=== PATIENT | male | born 1945 | race Caucasian/White ===

== ENCOUNTER 2017-11-12 10:35 | Inpatient (IN) ==
--- NOTE | 2017-11-12 11:05 | Emergency Department Note ---
Skin/Abscess/FB HPI - General Chief complaint: Skin/Abscess/Foreign Body Stated complaint: Left foot wound, sent by wound care Time Seen by Provider: 11/12/17 10:57 Source: patient Mode of arrival: ambulatory Limitations: no limitations - History of Present Illness HPI Narrative: 72-year-old male presents from wound care for worsening left diabetic foot ulcer. He has no sensation in his feet. He states it does not hurt. He has had this ulcer for about 4 months. He states it was good 2 days ago and when he changed his dressing yesterday it was erythematous. Dr. bang he is worried about osteomyelitis. 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 He has been diabetic for a long time. He states his recent blood sugars have been between 115 and 190. He says he has had chills but no other symptoms. - Related Data Home Medications Medication Instructions Recorded Confirmed Cholecalciferol (Vitamin D3) 10,000 unit PO QDAY 03/06/16 11/12/17 [Vitamin D3] Fish Oil 1,000 mg PO DAILY 03/06/16 11/12/17 Insulin Aspart [Novolog] 27 unit SQ TID 03/06/16 11/12/17 Insulin Glargine, Human [Lantus] 60 unit SQ HS 03/06/16 11/12/17 Losartan [Cozaar] 100 mg PO DAILY 03/06/16 11/12/17 Magnesium Oxide [Magnesium] 400 mg PO QHS 03/06/16 11/12/17 Multivit,Th Iron,Other Min 1 each PO QDAY 03/06/16 11/12/17 [Complete Multivitamin] Rosuvastatin [Crestor] 5 mg PO 2-3XW 03/06/16 11/12/17 Terazosin [Hytrin] 4 mg PO HS 03/06/16 11/12/17 Torsemide 5 mg PO QDAY 03/06/16 11/12/17 amLODIPine [Norvasc] 10 mg HS 03/06/16 11/12/17 Allergies Allergy/AdvReac Type Severity Reaction Status Date / Time ceftriaxone [From Rocephin] Allergy Unknown Verified 11/12/17 10:36 gentamicin Allergy Rash Verified 11/12/17 10:36 levofloxacin [From Levaquin] Allergy Unknown Verified 11/12/17 10:36 Dybaejo-Byf-Dcd Reductase AdvReac Joint Pain Verified 11/12/17 10:36 Inhibitor Review of Systems All systems ED: reviewed and negative except as stated. Past Medical History - Past Medical History Medical history: Reports: DM, hyperlipidemia, hypertension, other Surgical history ED: Reports: orthopedic, other (R leg amputation BKA) Family history: Reports: non-contributory - Social History smoking status: Never smoker Physical Exam Limitations: no limitations General appearance: alert, in no apparent distress Head: atraumatic Eye: Present: normal appearance. Absent: conjunctival injection Neck: Present: normal inspection, full ROM Chest: Present: normal inspection, symmetric chest wall rise Respiratory: Present: normal lung sounds bilaterally Cardiovascular: Present: regular rate, normal heart sounds Abdominal: Present: soft, normal bowel sounds. Absent: tenderness Extremities: Present: other (Ulcer measuring 2 cm on the lateral aspect of the fifth metatarsal on the left foot. There is a 1 cm opening in the middle of this. There is surrounding erythema going up the foot as well as swelling. Warmth as well) Neurological: Present: alert, oriented X3 Psychiatric: Present: normal affect, normal mood Skin: Present: warm, dry Course Course Narrative: Patient agreed to stay in the hospital. Dr. Whaley accepted. Dr. bang I talked to the patient and explained what he needs to do. Patient was agreeable. Vital Signs Temperature 98.0 F 11/12/17 10:36 Pulse Rate 76 11/12/17 10:36 Respiratory Rate 16 11/12/17 10:36 Blood Pressure 152/65 11/12/17 10:36 Pulse Oximetry (%) 94 11/12/17 10:36 Temperature 98.0 F 11/12/17 10:36 Pulse Rate 76 11/12/17 10:36 Respiratory Rate 16 11/12/17 10:36 Blood Pressure 152/65 11/12/17 10:36 Pulse Oximetry (%) 94 11/12/17 10:36 Skin/Abscess/Foreign Body - Lab Data Lab results reviewed: Yes I reviewed the patient's lab results. Result diagrams: 11/12/17 11:00 11/12/17 11:00 Lab Results 11/12/17 11/12/17 Range/Units 11:00 11:00 WBC 10.1 (4.5-11.0) K/mcL RBC 3.90 L (4.50-5.90) M/mcL Hgb 10.9 L (13.5-16.5) g/dL Hct 33.3 L (41.0-55.0) % MCV 85.4 (80.0-100.0) fL MCH 28.1 (26.0-34.0) pg MCHC 32.9 (31.0-36.0) g/dL RDW 16.3 H (11.5-14.5) % Plt Count 210 (140-440) K/mcL MPV 9.4 (7.4-10.4) fL Gran % 70.1 (38.0-78.0) % Lymph % (Auto) 18.8 (15.5-49.0) % [place] % (Auto) 8.7 (1.0-12.0) % Eos % (Auto) 1.9 (0.0-7.0) % Baso % (Auto) 0.5 (0.0-2.0) % Gran # 7.1 (1.8-8.0) K/mcL Lymph # (Auto) 1.9 (1.5-4.8) K/mcL [place] # (Auto) 0.9 (0.1-0.9) K/mcL Eos # (Auto) 0.2 (0.0-0.7) K/mcL Baso # (Auto) 0.1 (0.0-0.3) K/mcL Sodium 139 (133-145) mmol/L Potassium 5.1 (3.3-5.1) mmol/L Chloride 98 (96-108) mmol/L Carbon Dioxide 25 (22-30) mmol/L Anion Gap 16.0 (8-16) BUN 47 H (8-23) mg/dl Creatinine 2.5 H (0.7-1.2) mg/dl GFR Calculation 25 Glucose 192 H (70-105) mg/dL Hemoglobin A1c 8.5 H (4.0-6.0) % HGB Estim Average Glucose 197 mg/dL Calcium 9.7 (8.6-10.4) mg/dl Magnesium 2.5 (1.6-2.5) mg/dL Total Bilirubin 0.2 (0.0-1.0) mg/dL AST 9 (0-37) U/l ALT 8 (0-40) U/l Alkaline Phosphatase 67 (39-117) U/L C-Reactive Protein 6.8 H (0.0-0.8) mg/dl Total Protein 7.4 (5.9-8.4) gm/dL Albumin 3.9 (3.2-5.2) gm/dL Globulin 3.5 (2.2-3.7) gm/dL Albumin/Globulin Ratio 1.1 (1.0-2.3) Prealbumin 23.0 (20-40) mg/dl TSH 2.91 (0.27-5.01) uIU/ml - Radiology Data Radiology results reviewed: Yes I reviewed the patient's radiology results. 1. 14 mm intramedullary signal abnormality in the fifth metatarsal head and neck suggesting focal osteomyelitis. Fluid in the adjacent MTP joint could indicate septic arthritis. There is also a 3 cm fluid collection in the adjacent soft tissues which may represent an abscess or seroma. 2. No abnormality seen in the dorsal soft tissues of the mid foot where, apparently, there is a puncture wound. No retained foreign body or abscess - only diffuse cellulitis. 3. Moderate arthritic changes in the first, second and third MTP joints - likely atypical degeneration. Please correlate with physical exam findings. 4. Moderate degenerative change - ankle mortise Disposition Pt seen by [facility]/PA only: Yes Clinical Impression: Osteomyelitis, Diabetic foot ulcer Disposition: Xfer As Inpt ([facility]) Condition: Fair Referrals: Gallo Blevins DO [Primary Care Provider] -
[2017-11-12 11:30] LABS: Basophils # (Auto) 0.1 K/mcL (0.0-0.3); Basophils % (Auto) 0.5 % (0.0-2.0); Eosinophils # (Auto) 0.2 K/mcL (0.0-0.7); Eosinophils % (Auto) 1.9 % (0.0-7.0); Granulocytes % (Auto) 70.1 % (38.0-78.0); Lymphocytes # (Auto) 1.9 K/mcL (1.5-4.8); Lymphocytes % (Auto) 18.8 % (15.5-49.0); Mean Cell Volume 85.4 fL (80.0-100.0); Mean Corpuscular HGB Conc 32.9 g/dL (31.0-36.0); Mean Corpuscular Hemoglobin 28.1 pg (26.0-34.0); Monocytes # (Auto) 0.9 K/mcL (0.1-0.9); Monocytes % (Auto) 8.7 % (1.0-12.0); Platelet Count 210 K/mcL (140-440); Red Cell Distribution Width 16.3 % (11.5-14.5)
--- NOTE | 2017-11-12 11:40 | XRay Report ---
CLINICAL INFORMATION: Shrapnel in the left lower leg - prescreening for MRI COMPARISON: None. FINDINGS: Malunified old oblique fractures the mid tibia and proximal fibular diaphysis are appreciated with mild associated deformity. There are multiple (greater than 30 (tiny metallic fragments within the intramedullary proximal tibia. None are seen within the soft tissues. Moderate patellofemoral, tibiofemoral and ankle mortise degeneration IMPRESSION: Multiple small (less than 3 mm) metallic fragments a the intramedullary proximal tibia diaphysis/metaphysis. There are no soft tissue foreign metallic bodies adjacent to the neural vascular bundle. Moderate patellofemoral, tibiofemoral and ankle degeneration Malunified old fractures mid tibia and proximal fibula diaphysis with mild resultant deformity Interpreted and Authenticated by: Adeel Reddy 11/12/17
[2017-11-12 12:01] LABS: ALT/SGPT 8 U/l (0-40); Albumin 3.9 gm/dL (3.2-5.2); Albumin/Globulin Ratio 1.1 (1.0-2.3); Alkaline Phosphatase 67 U/L (39-117); Blood Urea Nitrogen 47 mg/dl (8-23); C-Reactive Protein 6.8 mg/dl (0.0-0.8)
[2017-11-12 12:26] LABS: Estimated Average Glucose(eAG) 197 mg/dL; Hemoglobin A1C 8.5 % HGB (4.0-6.0)
[2017-11-12] MEDS ORDERED: VANCOMYCIN PER PHARMACY IV ONE (12:34)
--- NOTE | 2017-11-12 12:40 | Magnetic Resonance Report ---
CLINICAL INFORMATION: Puncture wound in the dorsal subcutaneous soft tissues - mid foot. Evaluate for osteomyelitis COMPARISON: None. TECHNIQUE: Axial T1-T2 proton density, coronal proton density and sagittal proton density and T1 weighted images were obtained in the ankle and foot. A skin marker was placed over the dorsal mid foot where, apparently, there is a puncture wound. FINDINGS: There is mild subcutaneous cellulitis throughout the dorsal forefoot and midfoot but no evidence of abscess, foreign body or underlying osteomyelitis. There is; however, a 14 mm focus of intramedullary signal abnormality in the fifth metatarsal head and neck. It is low signal on T1 and increased signal on T2 and suspicious for osteomyelitis. There is a small effusion in the adjacent fifth MTP joint and a 3 cm fluid collection in the adjacent soft tissues which could indicate an abscess. There are hammertoe deformities in all the digits. Moderate arthritic changes are noted in the first, second and third MTP featuring cartilage loss, subchondral erosion and edema. Central erosion of the first proximal phalanx articular surface noted due to arthritis. This is likely atypical degeneration rather than inflammatory. Moderate degenerative changes noted in the ankle mortise joint space atrium narrowing subchondral cyst formation and marginal osteophytes. Mild diffuse cellulitis is noted. Tendons and sheaths are unremarkable. IMPRESSION: 1. 14 mm intramedullary signal abnormality in the fifth metatarsal head and neck suggesting focal osteomyelitis. Fluid in the adjacent MTP joint could indicate septic arthritis. There is also a 3 cm fluid collection in the adjacent soft tissues which may represent an abscess or seroma. 2. No abnormality seen in the dorsal soft tissues of the mid foot where, apparently, there is a puncture wound. No retained foreign body or abscess - only diffuse cellulitis. 3. Moderate arthritic changes in the first, second and third MTP joints - likely atypical degeneration. Please correlate with physical exam findings. 4. Moderate degenerative change - ankle mortise Interpreted and Authenticated by: Adeel Reddy 11/12/17
[2017-11-12] MEDS ORDERED: PIPERACILLIN SODIUM/TAZOBACTAM 2.25 GM in DEXTROSE 5% IN WATER 50 ML IV ONE (12:52)
[2017-11-12] MEDS ORDERED: VANCOMYCIN 1,500 MG in 0.9 % SODIUM CHLORIDE 500 ML IV ONE (13:15)
--- NOTE | 2017-11-12 14:08 | Internal Med History&Physical ---
<Hunter Jeff - Last Filed: 11/12/17 15:07> Medical - H&P: HPI Patient information: Note initiated : 11/12/17 at 2:02 pm Service Date, if different from initiated Date: [] Patient: Conrad Paul 72 y/o M admitted on for Left foot wound, sent by wound care. Chief Complaint: [] Left lateral foot ulcer worsening History of present illness: Mr. 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 . He had been attending weekly wound care appointments with Dr. Harrington for four months which he states has been helping up until his presentation today. He states that his wound does not cause him pain due to his sensory neuropathy. He denies sick contacts, fever, chest pain, N/V/D, abdominal pain, melena, bleeding or bruising. He admits to chills, night sweats, cough and sputum production. A lower limb MRI in the ER demonstrated osteomyelitis of the left 5th metatarsal and phalange with no gas or fluid. He was started on 2.25g of IV Zosyn and 1.5g IV Vancomycin in the ER and will be admitted for medical management along with wound care consultation. Review of systems: Const: denies sick contacts, fever. Admits to chills HEENT: Denies blurry vision, changes in vision, sore throat Resp: denies SOB, hemoptysis. Admits to sough with sputum production Card: denies orthopnea, chest pain. Admits to LE edema GI: Denies N/V/D, heartburn, abdominal pain, melena, hematochezia. Admits to constipation : Denies urgency, frequency, dysuria. Endo: Denies polyuria. Admits to polydipsia. Skin: Denies rashes MSK: Denies myalgias. Admits to arthralgia, and muscle weakness. Heme: Denies bruising or bleeding Neuro: Denies falls or memory loss Medical - H&P: PMH Medical history: Insulin dependent DMII, hyperlipidemia, hypertension, sleep apnea, COPD Surgical history: Right [id number]-[id number] leg amputation secondary to DMII Family history: reviewed and not pertinent Social history: Never a smoker No marijuana or illicit drugs No alcohol Medical - H&P: Meds Home Medications Medication Instructions Recorded Confirmed Type Cholecalciferol (Vitamin D3) 10,000 unit PO QDAY 03/06/16 11/12/17 History [Vitamin D3] Fish Oil 1,000 mg PO DAILY 03/06/16 11/12/17 History Insulin Aspart [Novolog] 27 unit SQ TID 03/06/16 11/12/17 History Insulin Glargine, Human [Lantus] 60 unit SQ HS 03/06/16 11/12/17 History Losartan [Cozaar] 100 mg PO DAILY 03/06/16 11/12/17 History Magnesium Oxide [Magnesium] 400 mg PO QHS 03/06/16 11/12/17 History Multivit,Th Iron,Other Min 1 each PO QDAY 03/06/16 11/12/17 History [Complete Multivitamin] Rosuvastatin [Crestor] 5 mg PO 2-3XW 03/06/16 11/12/17 History Terazosin [Hytrin] 4 mg PO HS 03/06/16 11/12/17 History Torsemide 5 mg PO QDAY 03/06/16 11/12/17 History amLODIPine [Norvasc] 10 mg HS 03/06/16 11/12/17 History Allergies Allergy/AdvReac Type Severity Reaction Status Date / Time daptomycin Allergy Unknown Verified 11/12/17 16:18 ceftriaxone [From Rocephin] Allergy Unknown Verified 11/12/17 10:36 gentamicin Allergy Rash Verified 11/12/17 10:36 levofloxacin [From Levaquin] Allergy Unknown Verified 11/12/17 10:36 Bjpdpcx-Ucv-Iar Reductase AdvReac Joint Pain Verified 11/12/17 10:36 Inhibitor Medical - H&P: Exam - Constitutional Vitals: Temp Pulse Resp BP Pulse Ox 98.0 F 76 16 152/65 94 11/12/17 10:36 11/12/17 10:36 11/12/17 10:36 11/12/17 10:36 11/12/17 10:36 General appearance: obese - Eye Eye exam: Present: PERRL - Expanded ENT Exam Mouth exam: Present: moist - Respiratory Respiratory exam: Present: normal respiratory exam - Cardiovascular Cardiovascular exam: Present: RRR, +S1, +S2 - GI/Abdominal GI/Abdominal exam: Present: normal bowel sounds, distended, firm Additional comments: Obese abdomen. No pain, guarding or rebound. - Extremities Exam Additional comments: Right leg amputation below the knee. Left foot shows stage II progressing to III foot ulcer at the distal left 5th metatarsal head with no discharge. Erythema and swelling is progressing from the ulcer to the mid foot, sparing the heel and not to the level of the ankle joint. There is sensory neuropathy to fine and sharp touch to mid-calf level. +3 pre-tibial edema - Neurological Exam Neurological exam: Present: CN II-XII intact Additional comments: BL sensorineural hearing defects. 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 CRP still pending. Awaiting results of blood and tissue cultures. Began empiric treatment with IV Vancomycin + Zosyn, we will modify if necessary upon culture results returning. Daily sharp debridement of foot ulcer along with dressing changes and offloading will be necessary- will coordinate with wound care. Pre-renal azotemia BUN/Cr ratio of 27. Likely a chronic issue after reviewing his previous labs. Hesitant to administer fluids due to his lower extremity edema. We will continue to monitor and avoid nephrotoxic agents. Poorly controlled Insulin Dependent Type-II Diabetes Mellitus Hemoglobin A1c on 11/12/17 measured at 8.5%. Chemistry panel showed blood glucose on presentation to be 192. We will better manage blood glucose in the hospital and re-evaluate his insulin therapy. <JovanaDanilotrang R - Last Filed: 11/12/17 17:44> Medical - H&P: HPI Patient information: Note initiated : 11/12/17 at 5:29 pm Service Date, if different from initiated Date: [] Patient: Conrad Paul 72 y/o M admitted on 11/12/17 for Left foot wound, sent by wound care. Chief Complaint: [] History of present illness: Mr. Paul is a 72 year old M with h/o Dm, h/o right bka, presents to the ER today after being sent from the wound care clinic for evaluation of left lower extermity swelling erythema. The patient has a chr left lower leg ulcer managed in the wound care clinic, the patient seems to have his dressing changed every 2 days, his foot appeared ok on wednesday, this it was red and swollen, and there was worsening of the ulcer on the lateral aspect of the foot. No pain due to neuropathy. Seen in the wound care clinic and sent to the ER. the patient notes not feeling right for 1-2 weeks, chills and some night sweats , no fever. 10 point ros done neg excpet as mentioned above. In the ER noted to have unremarkable labs, ckd present unchanged.MRI foot shows abscess 3 cms/ vs seroma, ostemyelits. No podiatry present in the hospital, Dr Love would be consulting and performing the needed debridement and if needed amputation. deep tissue cultures sent Pt started on IV vancomycin and zosyn ID to be involved once cultures are back. patient admitted to the hospital for further management All systems: reviewed and no additional remarkable complaints except as stated ( as per HPI) Medical - H&P: PMH Medical history: reviewed Surgical history: reviewed Family history: reviewed and not pertinent Social history: reviewed Medical - H&P: Exam - Constitutional Vitals: Temp Pulse Resp BP Pulse Ox 97.9 F 76 20 145/80 92 11/12/17 15:34 11/12/17 15:23 11/12/17 15:34 11/12/17 15:34 11/12/17 15:34 Exam: GENERAL: The patient is a well-developed, well-nourished in no apparent distress. Is alert and oriented x3. VITAL SIGNS: Reviewed and as noted elsewhere. HEENT: Head is normocephalic and atraumatic. Extraocular muscles are intact. Pupils are equal, round, and reactive to light. Nares appeared normal. Mouth appears any without lesions. Mucous membranes are moist. NECK: Normal to inspection, Supple, No lymphadenopathy or thyromegaly. LUNGS: Air entry equal on both sides, no wheezing, crackles or rhonchi noted. No accessory muscles of respiration HEART: Regular rate and rhythm normal, S1 and S2 heard, no Gallop, S3 or Rub Noted, No Gross murmur heard. ABDOMEN: Soft, nontender, and nondistended. Positive bowel sounds. No hepatosplenomegaly was noted. EXTREMITIES: right bka, left leg ulcer on lateral edge erthma uptill ankle, marked. NEUROLOGIC: Cranial nerves II through XII are grossly intact. Motor and Sensory System Grossly Intact PSYCHIATRIC: Normal affect, Normal Mood. Appropriate Behavior. SKIN: No ulceration or wounds noted, No jaundice, No rash noted. Medical - H&P: Reslt - Labs CBC & Chem 7: 11/12/17 11:00 11/12/17 11:00 Labs: Short CBC 11/12/17 Range/Units 11:00 WBC 10.1 (4.5-11.0) K/mcL Hgb 10.9 L (13.5-16.5) g/dL Hct 33.3 L (41.0-55.0) % Plt Count 210 (140-440) K/mcL [facility] 11/12/17 11:00 Sodium 139 Potassium 5.1 Chloride 98 Carbon Dioxide 25 BUN 47 H Creatinine 2.5 H Glucose 192 H Calcium 9.7 Liver Function 11/12/17 Range/Units 11:00 Total Bilirubin 0.2 (0.0-1.0) mg/dL AST 9 (0-37) U/l ALT 8 (0-40) U/l Alkaline Phosphatase 67 (39-117) U/L Albumin 3.9 (3.2-5.2) gm/dL Medical - H&P: A/P - Narrative A/P Narrative: A/P Left 5th MT Osteomyelitis with Abscess Sepsis HTN HLD Chronic Kidney Disease Uncontrolled Diabetes Anemia Plan Admit to med surgery IV vanco and zosy Wound care consulted, ID to consult Deep tissue cultures sent Gentle hydration Resume home dose of lantus, ssi for glucose control. DVT hep sq Diet Carb consistent. Full code.
--- NOTE | 2017-11-12 14:23 | General Surgery Consult Note ---
History of Present Illness Patient information: Note initiated : 11/12/17 at 2:07 pm Service Date, if different from initiated Date: [] Patient: Conrad Paul 72 y/o M admitted on for Left foot wound, sent by wound care. 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 This is an INTERVAL CHANGE from his last encounter over 2 days ago. He is an established patient at wound center for treatment of his DFU Choi 2 under his LEFT 5 th toe MPJ. 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 He felt warm and had chills. Concerned about sepsis, he came to the wound center on an unscheduled appointment. He was evaluated in clinic and sent to ER for further investigations and management. Medications and Allergies Home Medications Medication Instructions Recorded Confirmed Type Cholecalciferol (Vitamin D3) 10,000 unit PO QDAY 03/06/16 11/12/17 History [Vitamin D3] Fish Oil 1,000 mg PO DAILY 03/06/16 11/12/17 History Insulin Aspart [Novolog] 27 unit SQ TID 03/06/16 11/12/17 History Insulin Glargine, Human [Lantus] 60 unit SQ HS 03/06/16 11/12/17 History Losartan [Cozaar] 100 mg PO DAILY 03/06/16 11/12/17 History Magnesium Oxide [Magnesium] 400 mg PO QHS 03/06/16 11/12/17 History Multivit,Th Iron,Other Min 1 each PO QDAY 03/06/16 11/12/17 History [Complete Multivitamin] Rosuvastatin [Crestor] 5 mg PO 2-3XW 03/06/16 11/12/17 History Terazosin [Hytrin] 4 mg PO HS 03/06/16 11/12/17 History Torsemide 5 mg PO QDAY 03/06/16 11/12/17 History amLODIPine [Norvasc] 10 mg HS 03/06/16 11/12/17 History Allergies Allergy/AdvReac Type Severity Reaction Status Date / Time ceftriaxone [From Rocephin] Allergy Unknown Verified 11/12/17 10:36 gentamicin Allergy Rash Verified 11/12/17 10:36 levofloxacin [From Levaquin] Allergy Unknown Verified 11/12/17 10:36 Pxlzmwn-Dal-Ghh Reductase AdvReac Joint Pain Verified 11/12/17 10:36 Inhibitor Exam Temp Pulse Resp BP Pulse Ox 98.0 F 76 16 152/65 94 11/12/17 10:36 11/12/17 10:36 11/12/17 10:36 11/12/17 10:36 11/12/17 10:36 - General physical appearance well developed, well nourished, no distress - Eyes PERRL, normal ocular movement - ENT normal pinna, normal nares, normal mucosa, no congestion - Head Head exam IM: Present: atraumatic, normal inspection, normocephalic - Neck no masses, no bruits, trachea midline, no lymphadectomy, no venous distension - Cardiovascular Cardiovascular exam IM: Present: normal rate and rhythm - Respiratory normal expansion, normal respiratory effort, clear to auscultation - Abdomen Abdomen: Present: soft, non tender, bowel sounds - Integumentary Present: other (CELLULITIS left foot from DFU site to anterior ankle region with blister over the dorsal surface of foot which ruptures and drained serous fluid. Soft macerated wound base with purulence noted with odor to the discharge. NO crepitation. ) - Neurologic Present: normal coordination, other (Diabetic neuropahty LEFT foot, ankle and lowewr leg. Right BKA amputation. ) - Musculoskeletal Present: other (Right BKA. Ambulates with a walker. ) - Psychiatric Present: oriented to time, oriented to person, oriented to place, speech is normal, memory intact Results - Labs 11/12/17 11:00 11/12/17 11:00 Abnormal lab results 11/12/17 11/12/17 Range/Units 11:00 11:00 RBC 3.90 L (4.50-5.90) M/mcL Hgb 10.9 L (13.5-16.5) g/dL Hct 33.3 L (41.0-55.0) % RDW 16.3 H (11.5-14.5) % BUN 47 H (8-23) mg/dl Creatinine 2.5 H (0.7-1.2) mg/dl Glucose 192 H (70-105) mg/dL Hemoglobin A1c 8.5 H (4.0-6.0) % HGB C-Reactive Protein 6.8 H (0.0-0.8) mg/dl Diabetes panel 11/12/17 Range/Units 11:00 Sodium 139 (133-145) mmol/L Potassium 5.1 (3.3-5.1) mmol/L Chloride 98 (96-108) mmol/L Carbon Dioxide 25 (22-30) mmol/L BUN 47 H (8-23) mg/dl Creatinine 2.5 H (0.7-1.2) mg/dl Glucose 192 H (70-105) mg/dL Hemoglobin A1c 8.5 H (4.0-6.0) % HGB Calcium 9.7 (8.6-10.4) mg/dl AST 9 (0-37) U/l ALT 8 (0-40) U/l Alkaline Phosphatase 67 (39-117) U/L Total Protein 7.4 (5.9-8.4) gm/dL Albumin 3.9 (3.2-5.2) gm/dL Thyroid panel 11/12/17 Range/Units 11:00 TSH 2.91 (0.27-5.01) uIU/ml Calcium panel 11/12/17 Range/Units 11:00 Calcium 9.7 (8.6-10.4) mg/dl Albumin 3.9 (3.2-5.2) gm/dL Pituitary panel 11/12/17 Range/Units 11:00 Sodium 139 (133-145) mmol/L Potassium 5.1 (3.3-5.1) mmol/L Chloride 98 (96-108) mmol/L Carbon Dioxide 25 (22-30) mmol/L BUN 47 H (8-23) mg/dl Creatinine 2.5 H (0.7-1.2) mg/dl Glucose 192 H (70-105) mg/dL Calcium 9.7 (8.6-10.4) mg/dl TSH 2.91 (0.27-5.01) uIU/ml Adrenal panel 11/12/17 Range/Units 11:00 Sodium 139 (133-145) mmol/L Potassium 5.1 (3.3-5.1) mmol/L Chloride 98 (96-108) mmol/L Carbon Dioxide 25 (22-30) mmol/L BUN 47 H (8-23) mg/dl Creatinine 2.5 H (0.7-1.2) mg/dl Glucose 192 H (70-105) mg/dL Calcium 9.7 (8.6-10.4) mg/dl Total Bilirubin 0.2 (0.0-1.0) mg/dL AST 9 (0-37) U/l ALT 8 (0-40) U/l Alkaline Phosphatase 67 (39-117) U/L Total Protein 7.4 (5.9-8.4) gm/dL Albumin 3.9 (3.2-5.2) gm/dL All other labs normal. Assessment and Plan (1) Sepsis Assessment; CSSSI, / Osteomyelitis DFU Choi 2 with uncontrolled diabetes. and open neuropathic ulcer under Left foot 5 the toe MPJ. Plan: Tissue cultures obtained from ulcer bed before starting on IV antibiotics. IV antibiotics Zosyn and Vancomycin. Local wound care MIST therapy BID Elevation of foot on pillows. MONITOR closely for DEFERVESCENCE of clinical findings. Possibility of need for OR debridement and / or HBOT as appropriate. Spoke with patient and Hospitalist physician and nursing staff at length. I will be following this patient during his hospitalization. Status: Acute Priority: High Comment: CSSSI, osteomyelitis in DFU, Choi 2 , Uncontrolled diabetes Qualifiers: Sepsis type: sepsis due to unspecified organism Qualified Code(s): A41.9 - Sepsis, unspecified organism
[2017-11-12] MEDS ORDERED: ALBUTEROL SULFATE 2.5 MG/3 ML NEBULIZER NEB PRN (15:28)
[2017-11-12] MEDS ORDERED: ACETAMINOPHEN 325 MG TABLET PO PRN (15:28)
[2017-11-12] MEDS ORDERED: HYDROmorphone 2 MG/ML VIAL IV PRN (15:28)
[2017-11-12] MEDS ORDERED: HYDROcodone/APAP 5/325MG TABLET PO PRN (15:28)
[2017-11-12] MEDS ORDERED: MAGNESIUM HYDROXIDE 30 ML ORAL.SUSP PO PRN (15:28)
[2017-11-12] MEDS ORDERED: DEXTROSE 31 GM ORAL.SUSP PO PRN (17:02)
[2017-11-12] MEDS ORDERED: DEXTROSE 50% 50 ML VIAL IV PRN (17:02)
[2017-11-12] MEDS ORDERED: INSULIN LISPRO 1 UNIT/0.01 ML UNIT SQ SCH (17:30)
[2017-11-12] MEDS: PIPERACILLIN SODIUM/TAZOBACTAM 2.25 GM in DEXTROSE 5% IN WATER 50 ML IV SCH ×2 (17:55→22:52)
[2017-11-12] MEDS ORDERED: GENTAMICIN SULFATE 40 MG, CLINDAMYCIN 300 MG, BACITRACIN 25,000 UNIT in SODIUM CHLORIDE... IRR ONE (22:00)
[2017-11-12] MEDS: amLODIPine 10 MG TABLET PO SCH (22:02)
[2017-11-12] MEDS: HEPARIN 5,000 UNIT/ML VIAL SQ SCH (22:02)
[2017-11-12] MEDS: INSULIN LISPRO 1 UNIT/0.01 ML UNIT SQ SCH (22:02)
[2017-11-12] MEDS: MAGNESIUM OXIDE 400 MG TABLET PO SCH (22:02)
[2017-11-12] MEDS: TERAZOSIN 1 MG CAPSULE PO SCH (22:02)
[2017-11-12] MEDS: INSULIN GLARGINE, HUMAN 1 UNIT/0.01 ML SQ SCH (22:03)
[2017-11-12] MEDS: 0.9 % SODIUM CHLORIDE 10 ML SYRINGE IV SCH (22:09)
[2017-11-13 05:35] LABS: Basophils # (Auto) 0 K/mcL (0.0-0.3); Basophils % (Auto) 0.5 % (0.0-2.0); Eosinophils # (Auto) 0.2 K/mcL (0.0-0.7); Eosinophils % (Auto) 2.5 % (0.0-7.0); Granulocytes % (Auto) 73.6 % (38.0-78.0); Lymphocytes % (Auto) 12.9 % (15.5-49.0); Mean Cell Volume 86.4 fL (80.0-100.0); Mean Corpuscular HGB Conc 33.5 g/dL (31.0-36.0); Mean Corpuscular Hemoglobin 28.9 pg (26.0-34.0); Monocytes # (Auto) 0.9 K/mcL (0.1-0.9); Monocytes % (Auto) 10.5 % (1.0-12.0); Platelet Count 187 K/mcL (140-440); Red Cell Distribution Width 16.4 % (11.5-14.5)
[2017-11-13] MEDS: PIPERACILLIN SODIUM/TAZOBACTAM 2.25 GM in DEXTROSE 5% IN WATER 50 ML IV SCH ×3 (05:35→17:10)
[2017-11-13] MEDS: 0.9 % SODIUM CHLORIDE 10 ML SYRINGE IV SCH ×3 (05:57→20:29)
[2017-11-13 06:05] LABS: Hemoglobin A1C 8.5 % HGB (4.0-6.0)
[2017-11-13 06:11] LABS: ALT/SGPT 7 U/l (0-40); Albumin 3.6 gm/dL (3.2-5.2); Albumin/Globulin Ratio 1.1 (1.0-2.3); Alkaline Phosphatase 65 U/L (39-117); Bilirubin,Direct < 0.2 mg/dL (0.0-0.3); Blood Urea Nitrogen 45 mg/dl (8-23); Gamma Glutamyl Transpeptidase 24 U/L (8-61); Uric Acid 10.4 mg/dL (2.5-8.0)
[2017-11-13 06:12] LABS: C-Reactive Protein 7.5 mg/dl (0.0-0.8)
[2017-11-13] MEDS: INSULIN LISPRO 1 UNIT/0.01 ML UNIT SQ SCH ×4 (07:28→20:27)
[2017-11-13] MEDS: FISH OIL 1,000 MG CAPSULE PO SCH (09:05)
[2017-11-13] MEDS: VITAMIN D3 5,000 UNIT CAPSULE PO SCH (09:05)
[2017-11-13] MEDS: HEPARIN 5,000 UNIT/ML VIAL SQ SCH ×2 (09:05→20:28)
[2017-11-13] MEDS: MULTIVIT,THER IRON,CA,FA & MIN 1 TABLET PO SCH (09:05)
[2017-11-13] MEDS: GENTAMICIN SULFATE 40 MG, CLINDAMYCIN 300 MG, BACITRACIN 25,000 UNIT in SODIUM CHLORIDE... IRR SCH ×2 (09:06→20:28)
[2017-11-13] MEDS: LOSARTAN 50 MG TABLET PO SCH (09:06)
[2017-11-13] MEDS: TORSEMIDE 10 MG TABLET PO SCH (09:06)
--- NOTE | 2017-11-13 11:50 | General Surgery Progress Note ---
Subjective Narrative: Note initiated : 11/13/17 at 11:46 am Service Date, if different from initiated Date: [] Patient: Conrad Paul 72 y/o M admitted on 11/12/17 for Left foot wound, sent by wound care. Chief Complaint: [] patient had an uneventful night. On Local wound care and IV antibiotics. Objective Temp Pulse Resp BP Pulse Ox 98.2 F 68 16 168/75 93 11/13/17 11:35 11/13/17 11:35 11/13/17 11:35 11/13/17 11:35 11/13/17 11:35 AVSS. No changes in MARCO. Patient has had h/o COPD in past. Reviewed MRI report and seen pictures. Patient has soft tissue infection and POSSIBLY bone infection at site of DFU. Needing wound exploration and debridement. This was carried out at bedside with nursing assistance from Claudette GUTIERREZ - Additional Data Intake & Output - Last 24 hours: Intake & Output 11/11/17 11/12/17 11/13/17 11/14/17 05:59 05:59 05:59 05:59 Intake Total 1150 / 1150 350 / 350 Output Total 1300 / 1300 Balance -150 / -150 350 / 350 Weight 307 lb - Labs 11/13/17 04:15 11/13/17 04:15 Diabetes panel 11/12/17 11/13/17 11/13/17 Range/Units 11:00 04:15 04:15 Sodium 139 138 (133-145) mmol/L Potassium 5.1 4.9 (3.3-5.1) mmol/L Chloride 98 100 (96-108) mmol/L Carbon Dioxide 25 25 (22-30) mmol/L BUN 47 H 45 H (8-23) mg/dl Creatinine 2.5 H 2.4 H (0.7-1.2) mg/dl Glucose 192 H 116 H (70-105) mg/dL Hemoglobin A1c 8.5 H 8.5 H (4.0-6.0) % HGB Calcium 9.7 9.3 (8.6-10.4) mg/dl AST 9 10 (0-37) U/l ALT 8 7 (0-40) U/l Alkaline Phosphatase 67 65 (39-117) U/L Total Protein 7.4 6.9 (5.9-8.4) gm/dL Albumin 3.9 3.6 (3.2-5.2) gm/dL Triglycerides 181 H (<150) mg/dl Thyroid panel 11/12/17 Range/Units 11:00 TSH 2.91 (0.27-5.01) uIU/ml Calcium panel 11/12/17 11/13/17 Range/Units 11:00 04:15 Calcium 9.7 9.3 (8.6-10.4) mg/dl Phosphorus 3.7 (2.7-4.5) mg/dL Albumin 3.9 3.6 (3.2-5.2) gm/dL Pituitary panel 11/12/17 11/13/17 Range/Units 11:00 04:15 Sodium 139 138 (133-145) mmol/L Potassium 5.1 4.9 (3.3-5.1) mmol/L Chloride 98 100 (96-108) mmol/L Carbon Dioxide 25 25 (22-30) mmol/L BUN 47 H 45 H (8-23) mg/dl Creatinine 2.5 H 2.4 H (0.7-1.2) mg/dl Glucose 192 H 116 H (70-105) mg/dL Calcium 9.7 9.3 (8.6-10.4) mg/dl TSH 2.91 (0.27-5.01) uIU/ml Adrenal panel 11/12/17 11/13/17 Range/Units 11:00 04:15 Sodium 139 138 (133-145) mmol/L Potassium 5.1 4.9 (3.3-5.1) mmol/L Chloride 98 100 (96-108) mmol/L Carbon Dioxide 25 25 (22-30) mmol/L BUN 47 H 45 H (8-23) mg/dl Creatinine 2.5 H 2.4 H (0.7-1.2) mg/dl Glucose 192 H 116 H (70-105) mg/dL Calcium 9.7 9.3 (8.6-10.4) mg/dl Total Bilirubin 0.2 0.2 (0.0-1.0) mg/dL AST 9 10 (0-37) U/l ALT 8 7 (0-40) U/l Alkaline Phosphatase 67 65 (39-117) U/L Total Protein 7.4 6.9 (5.9-8.4) gm/dL Albumin 3.9 3.6 (3.2-5.2) gm/dL Assessment and Plan (1) Sepsis Problem details: CSSSI, osteomyelitis in DFU, Choi 2, Uncontrolled diabetes Status: Acute Current Visit: Yes - Time Spent With Patient Total time spent is greater than 50% in coordination of care (as documented) at patient's floor/unit and/or counseling patient: Assessment : DFU Choi 3 ( s/p wound exploration and debridement at bedside. ) Plan: Continue current treatment. CXR before HBOT for DFU 3 with Sepsis. 15 - 24 minutes (Satisfactory progress.)
--- NOTE | 2017-11-13 12:03 | General Surgery Procedure Note ---
Date of procedure: Note initiated : 11/13/17 at 11:54 am Service Date, if different from initiated Date: [] Pre-op diagnosis: Sepsis Infect DFU Left foot Anterior lateral Post-op diagnosis: other (DFU Choi 3. Post debridement of ulcer site.) Procedure: Spoke with patient about results of MRI and need to evaluate and dbride the wound at bedside. Informed verbal consent obtained. With nursing help, the area was cleaned, prepped and draped. Patient has neuropathy and no sensation around the wound and foot site. Using # 15 scalpel blade, tangential excision of ellipse of skin and callosity was carried out up normal palpable skin margins. Thick yellow purulent drainage was seen at 6 O'Clock. This area was explored digitally and loculations were broken down digitally. The wound was copiously washed and irrigated with NS and packed open with GCB soaked wet and dry gauze and reinforced with gauze, ABD and kerlix bandage. EBL under 5 ML. Anesthesia: none Surgeon: Valdo Harrington Pathology: none sent Condition: stable Disposition: floor (Procedure well tolerated.)
--- NOTE | 2017-11-13 15:01 | Internal Med Progress Note ---
Medical - PN: Subj Patient information: Note initiated : 11/13/17 at 2:55 pm Service Date, if different from initiated Date: [] Patient: Conrad Paul 72 y/o M admitted on 11/12/17 for Left foot wound, sent by wound care. Chief Complaint: [] Interval history: Mr. 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 . He had been attending weekly wound care appointments with Dr. Harrington for four months which he states has been helping up until his presentation today. He states that his wound does not cause him pain due to his sensory neuropathy. He denies sick contacts, fever, chest pain, N/V/D, abdominal pain, melena, bleeding or bruising. He admits to chills, night sweats, cough and sputum production. A lower limb MRI in the ER demonstrated osteomyelitis of the left 5th metatarsal and phalange with no gas or fluid. He was started on 2.25g of IV Zosyn and 1.5g IV Vancomycin in the ER and will be admitted for medical management along with wound care consultation 10/14 Pt seen examined, no acute overnight issues, tolerating po dietwell, wound recently wrapped by Dr Maya Pt labs st able cultures neg so far Plan for picc Pertinent ROS: Denies headache, dizziness Denies chest pain, palpitations Denies cough or shortness of breath Denies abdominal pain, nausea or vomiting. - Constitutional Vitals: Vital Signs Temp Pulse Resp BP Pulse Ox 98.2 F 68 16 168/75 93 11/13/17 11:35 11/13/17 11:35 11/13/17 11:35 11/13/17 11:35 11/13/17 11:35 Period Temp Pulse Resp BP Sys/Zapata Pulse Ox Last 24 Hr 97.8 F-98.7 F 60-76 16-20 142-168/50-80 91-94 Intake and Output 11/13/17 11/13/17 11/13/17 05:59 13:59 21:59 Intake Total 450 / 450 1050 / 1050 Output Total 1300 / 1300 Balance -850 / -850 1050 / 1050 Weight 307 lb Patient Weight 11/14/17 05:59 Weight 307 lb Intake & Output: Intake & Output 11/13/17 11/13/17 11/13/17 05:59 13:59 21:59 Intake Total 450 / 450 1050 / 1050 Output Total 1300 / 1300 Balance -850 / -850 1050 / 1050 Weight 307 lb Intake: IV 50 / 50 50 / 50 Zosyn 2.25 gm In Dextrose 5% in 50 / 50 50 / 50 Water 50 ml @ 100 mls/hr IV Q6H [facility] Rx#:[id number] Oral 400 / 400 1000 / 1000 Output: Void Amount 1300 / 1300 Other: Meal Lunch Percent of Meal Consumed 100% Feeding Ability Independent Exam: Constitutional; Afebrile, cooperative, alert, not in distress. Eyes- No icterus, , No periorbital swelling Ears- Ext ear normal, hearing normal to conversation. Neck- Midline trachea, supple Respiratory system: Air Entry equal on both sides, No crackles or wheezing, no rhonchi. CVS- Rate rhythm regular, S1,S2 heard, no gallop, no rub. Abdomen- Soft nontender abdomen, no organomegaly, no tenderness, no guarding or rigidity, [employer]- AOOx3, moving all extremities, no gross focal deficit noted. Medical - PN: Obj Da - Labs CBC & Chem 7: 11/13/17 04:15 11/13/17 04:15 Labs: Abnormal Lab Results 11/13/17 11/13/17 11/13/17 04:15 04:15 04:15 RBC Hgb Hct RDW Lymph % (Auto) Lymph # (Auto) ESR 107 H BUN 45 H Creatinine 2.4 H Glucose 116 H Hemoglobin A1c 8.5 H Uric Acid 10.4 H Magnesium 2.6 H C-Reactive Protein 7.5 H Triglycerides 181 H 11/13/17 11/12/17 11/12/17 04:15 11:00 11:00 RBC 3.60 L 3.90 L Hgb 10.4 L 10.9 L Hct 31.1 L 33.3 L RDW 16.4 H 16.3 H Lymph % (Auto) 12.9 L Lymph # (Auto) 1.0 L ESR BUN 47 H Creatinine 2.5 H Glucose 192 H Hemoglobin A1c 8.5 H Uric Acid Magnesium C-Reactive Protein 6.8 H Triglycerides Meds: Medications Acetaminophen (Tylenol) 650 mg PO Q6HP PRN PRN Reason: PAIN/FEVER > 101 Hydrocodone Bitart/Acetaminophen (Malone 5/325mg) 1 tab PO Q4HP PRN PRN Reason: PAIN LEVEL 3-6 Albuterol Sulfate (Ventolin) 2.5 mg NEB Q2HP PRN PRN Reason: Shortness Of Breath Amlodipine Besylate (Norvasc) 10 mg PO HS [facility] Last Admin: 11/12/17 22:02 Dose: 10 mg Atorvastatin Calcium (Lipitor) 20 mg PO MoTh@2100 [facility] Dextrose (Dextrose 50%) 0 ml IV UD PRN PRN Reason: Hypoglycemia Diagnostic Test (Pha) (Accu-Chek) 1 each FS ACHS [facility] Last Admin: 11/13/17 11:10 Dose: 1 each Fish Oil (Fish Oil) 1,000 mg PO DAILY [facility] Last Admin: 11/13/17 09:05 Dose: 1,000 mg Glucose (Insta-Glucose) 15 gm PO PRN PRN PRN Reason: Hypoglycemia Heparin Sodium (Porcine) (Heparin) 5,000 unit SQ Q12 [facility] Last Admin: 11/13/17 09:05 Dose: 5,000 unit Heparin Sodium (Porcine) (Heparin Flush) 2 ml IV Q12 [facility] Hydromorphone HCl (Dilaudid) 0.5 mg IV Q2HP PRN PRN Reason: PAIN LEVEL > 6 Piperacillin Sod/Tazobactam (Sod 2.25 gm/ Dextrose) 50 mls @ 100 mls/hr IV Q6H [facility] Last Admin: 11/13/17 11:26 Dose: 100 mls/hr Gentamicin Sulfate 40 mg/Clindamycin Phosphate 300 mg/Bacitracin 25,000 unit/ Sodium Chloride 503 mls @ 0 mls/hr IRR BID [facility] Last Admin: 11/13/17 09:06 Dose: 10 mls/hr Insulin Glargine (Lantus) 60 unit SQ [facility] Last Admin: 11/12/17 22:03 Dose: 60 unit Insulin Human Lispro (Humalog) 0 unit SQ ACHS [facility]; Protocol Last Admin: 11/13/17 11:10 Dose: 12 unit Iron Carb/Multivit/Hyden/Folic Acid (Multivitamin W/Minerals) 1 tab PO DAILY [facility] Last Admin: 11/13/17 09:05 Dose: 1 tab Losartan Potassium (Cozaar) 100 mg PO DAILY [facility] Last Admin: 11/13/17 09:06 Dose: 100 mg Magnesium Hydroxide (Milk Of Magnesia) 30 ml PO DAILYP PRN PRN Reason: Constipation Magnesium Oxide (Magnesium Oxide) 400 mg PO QHS [facility] Last Admin: 11/12/17 22:02 Dose: 400 mg Sodium Chloride (Saline Flush) 10 ml IV Q8 [facility] Last Admin: 11/13/17 05:57 Dose: 10 ml Terazosin HCl (Hytrin) 4 mg PO HS [facility] Last Admin: 11/12/17 22:02 Dose: 4 mg Torsemide (Demadex) 5 mg PO DAILY [facility] Last Admin: 11/13/17 09:06 Dose: 5 mg Vitamin D (Vitamin D3) 10,000 unit PO DAILY [facility] Last Admin: 11/13/17 09:05 Dose: 10,000 unit Medical - PN: A/P - Time Spent With Patient Total time spent is greater than 50% in coordination of care (as documented) at patient's floor/unit and/or counseling patient: - Narrative A/P Narrative: A/P Left 5th MT Osteomyelitis with Abscess Sepsis HTN HLD Chronic Kidney Disease Uncontrolled Diabetes Anemia Plan continue IV vanco and zosyn get picc line Wound care consulted, ID consult Deep tissue cultures sent, results pending. Gentle hydration Resume home dose of lantus, ssi for glucose control. home meds resumed. DVT hep sq Diet Carb consistent. Full code. Medical - PN: Qual - VTE Deep Vein Thrombosis/Pulmonary Embolism Present on Admission: No
[2017-11-13] MEDS: amLODIPine 10 MG TABLET PO SCH (20:26)
[2017-11-13] MEDS: INSULIN GLARGINE, HUMAN 1 UNIT/0.01 ML SQ SCH (20:27)
[2017-11-13] MEDS: MAGNESIUM OXIDE 400 MG TABLET PO SCH (20:29)
[2017-11-13] MEDS: TERAZOSIN 1 MG CAPSULE PO SCH (20:46)
[2017-11-14] MEDS: PIPERACILLIN SODIUM/TAZOBACTAM 2.25 GM in DEXTROSE 5% IN WATER 50 ML IV SCH ×3 (00:02→12:30)
[2017-11-14] MEDS: 0.9 % SODIUM CHLORIDE 10 ML SYRINGE IV SCH ×3 (05:04→22:56)
[2017-11-14 07:16] LABS: Basophils # (Auto) 0 K/mcL (0.0-0.3); Basophils % (Auto) 0.6 % (0.0-2.0); Eosinophils # (Auto) 0.2 K/mcL (0.0-0.7); Eosinophils % (Auto) 2.8 % (0.0-7.0); Granulocytes % (Auto) 62.1 % (38.0-78.0); Lymphocytes # (Auto) 1.5 K/mcL (1.5-4.8); Lymphocytes % (Auto) 21.3 % (15.5-49.0); Mean Cell Volume 86.1 fL (80.0-100.0); Mean Corpuscular HGB Conc 32.9 g/dL (31.0-36.0); Mean Corpuscular Hemoglobin 28.4 pg (26.0-34.0); Monocytes % (Auto) 13.2 % (1.0-12.0); Platelet Count 188 K/mcL (140-440); RBC 3.49 M/mcL (4.50-5.90); Red Cell Distribution Width 15.8 % (11.5-14.5)
[2017-11-14] MEDS: MULTIVIT,THER IRON,CA,FA & MIN 1 TABLET PO SCH (07:55)
[2017-11-14] MEDS: LOSARTAN 50 MG TABLET PO SCH (07:55)
[2017-11-14] MEDS: INSULIN LISPRO 1 UNIT/0.01 ML UNIT SQ SCH ×4 (07:55→21:53)
[2017-11-14] MEDS: TORSEMIDE 10 MG TABLET PO SCH (07:55)
[2017-11-14] MEDS: FISH OIL 1,000 MG CAPSULE PO SCH (07:56)
[2017-11-14] MEDS: HEPARIN 5,000 UNIT/ML VIAL SQ SCH ×2 (07:56→21:54)
[2017-11-14] MEDS: VITAMIN D3 5,000 UNIT CAPSULE PO SCH (07:56)
[2017-11-14 08:04] LABS: ALT/SGPT 7 U/l (0-40); Albumin 3.4 gm/dL (3.2-5.2); Alkaline Phosphatase 60 U/L (39-117); Bilirubin,Direct < 0.2 mg/dL (0.0-0.3); Blood Urea Nitrogen 50 mg/dl (8-23); Gamma Glutamyl Transpeptidase 25 U/L (8-61); Uric Acid 9.9 mg/dL (2.5-8.0)
[2017-11-14] MEDS: GENTAMICIN SULFATE 40 MG, CLINDAMYCIN 300 MG, BACITRACIN 25,000 UNIT in SODIUM CHLORIDE... IRR SCH ×2 (12:30→21:54)
--- NOTE | 2017-11-14 12:39 | General Surgery Progress Note ---
Subjective Patient reports: other (Uneventful night. Patient does NOT voice any complaints. ) Narrative: Note initiated : 11/14/17 at 12:36 pm Service Date, if different from initiated Date: [] Patient: Conrad Paul 72 y/o M admitted on 11/12/17 for Left 5th MT Osteomyelitis with Abscess. Chief Complaint: [] Objective Temp Pulse Resp BP Pulse Ox 98.0 F 62 16 148/70 92 11/14/17 07:15 11/14/17 07:15 11/14/17 07:15 11/14/17 07:15 11/14/17 07:15 AVSS. No changes MARCO. Local wound care is ongoing. Labs reviewed. Will monitor Creatinine. C/s Strep and Enterococcus. Sensitivities pending. PICC line is in. - Additional Data Intake & Output - Last 24 hours: Intake & Output 11/12/17 11/13/17 11/14/17 11/15/17 05:59 05:59 05:59 05:59 Intake Total 1150 / 1150 1900 / 1900 650 / 650 Output Total 1300 / 1300 700 / 700 975 / 975 Balance -150 / -150 1200 / 1200 -325 / -325 Weight 307 lb 306 lb - Labs 11/14/17 05:25 11/14/17 05:25 Diabetes panel 11/14/17 Range/Units 05:25 Sodium 138 (133-145) mmol/L Potassium 4.6 (3.3-5.1) mmol/L Chloride 99 (96-108) mmol/L Carbon Dioxide 25 (22-30) mmol/L BUN 50 H (8-23) mg/dl Creatinine 2.8 H (0.7-1.2) mg/dl Glucose 199 H (70-105) mg/dL Calcium 9.0 (8.6-10.4) mg/dl AST 11 (0-37) U/l ALT 7 (0-40) U/l Alkaline Phosphatase 60 (39-117) U/L Total Protein 6.8 (5.9-8.4) gm/dL Albumin 3.4 (3.2-5.2) gm/dL Triglycerides 173 H (<150) mg/dl Calcium panel 11/14/17 Range/Units 05:25 Calcium 9.0 (8.6-10.4) mg/dl Phosphorus 4.2 (2.7-4.5) mg/dL Albumin 3.4 (3.2-5.2) gm/dL Pituitary panel 11/14/17 Range/Units 05:25 Sodium 138 (133-145) mmol/L Potassium 4.6 (3.3-5.1) mmol/L Chloride 99 (96-108) mmol/L Carbon Dioxide 25 (22-30) mmol/L BUN 50 H (8-23) mg/dl Creatinine 2.8 H (0.7-1.2) mg/dl Glucose 199 H (70-105) mg/dL Calcium 9.0 (8.6-10.4) mg/dl Adrenal panel 11/14/17 Range/Units 05:25 Sodium 138 (133-145) mmol/L Potassium 4.6 (3.3-5.1) mmol/L Chloride 99 (96-108) mmol/L Carbon Dioxide 25 (22-30) mmol/L BUN 50 H (8-23) mg/dl Creatinine 2.8 H (0.7-1.2) mg/dl Glucose 199 H (70-105) mg/dL Calcium 9.0 (8.6-10.4) mg/dl Total Bilirubin 0.2 (0.0-1.0) mg/dL AST 11 (0-37) U/l ALT 7 (0-40) U/l Alkaline Phosphatase 60 (39-117) U/L Total Protein 6.8 (5.9-8.4) gm/dL Albumin 3.4 (3.2-5.2) gm/dL Assessment and Plan (1) Sepsis Problem details: CSSSI, osteomyelitis in DFU, Choi 2, Uncontrolled diabetes Status: Acute Current Visit: Yes - Narrative A/P Narrative: Assessment: Progressing well. Plan: CPT. HBOT starting tomorrow ??. Await ID input. - Time Spent With Patient Total time spent is greater than 50% in coordination of care (as documented) at patient's floor/unit and/or counseling patient: less than 15 minutes
--- NOTE | 2017-11-14 13:16 | XRay Report ---
CLINICAL INFORMATION: COPD COMPARISON: 04/27/2017 FINDINGS: Heart size, mediastinum and pulmonary vessels are normal. COPD changes are stable. Minor scarring left lung base and mild elevation left diaphragm which is stable. 3-4 nodules in the midlungs, ranging up to 8 mm, not definitely previously seen. IMPRESSION: COPD - no acute cardiopulmonary disease Vague nodules, ranging up to 8 mm, in both mid lungs. Consider chest CT Interpreted and Authenticated by: Adeel Reddy 11/14/17
--- NOTE | 2017-11-14 15:54 | Internal Med Progress Note ---
Medical - PN: Subj Patient information: Note initiated : 11/14/17 at 3:52 pm Service Date, if different from initiated Date: [] Patient: Conrad Paul a 72 y/o M admitted on 11/12/17 for Left 5th MT Osteomyelitis with Abscess. Chief Complaint: [] Interval history: Mr. 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 . He had been attending weekly wound care appointments with Dr. Harrington for four months which he states has been helping up until his presentation today. He states that his wound does not cause him pain due to his sensory neuropathy. He denies sick contacts, fever, chest pain, N/V/D, abdominal pain, melena, bleeding or bruising. He admits to chills, night sweats, cough and sputum production. A lower limb MRI in the ER demonstrated osteomyelitis of the left 5th metatarsal and phalange with no gas or fluid. He was started on 2.25g of IV Zosyn and 1.5g IV Vancomycin in the ER and will be admitted for medical management along with wound care consultation 10/14 Pt seen examined, no acute overnight issues, tolerating po dietwell, wound recently wrapped by Dr Maya Pt labs st able cultures neg so far Plan for picc 10/15 Patient seen and examined, no acute overnight events. Chest x-ray done, some lung nodules noted. CXR was ordered for picc placement per protocol, unfortunately done before the picc was placed he will get CT chest as outpatient for lung nodule evaluation labs stable ID to consult Pertinent ROS: Denies headache, dizziness Denies chest pain, palpitations Denies cough or shortness of breath Denies abdominal pain, nausea or vomiting. - Constitutional Vitals: Vital Signs Temp Pulse Resp BP Pulse Ox 98.2 F 62 18 162/64 92 11/14/17 12:00 11/14/17 07:15 11/14/17 12:00 11/14/17 12:00 11/14/17 12:00 Period Temp Pulse Resp BP Sys/[place] Pulse Ox Last 24 Hr 97.1 F-99.5 F 62-74 16-18 148-179/54-75 92-94 Intake and Output 11/14/17 11/14/17 11/14/17 05:59 13:59 21:59 Intake Total 350 / 350 650 / 650 Output Total 975 / 975 Balance 350 / 350 -325 / -325 Intake & Output: Intake & Output 11/14/17 11/14/17 11/14/17 05:59 13:59 21:59 Intake Total 350 / 350 650 / 650 Output Total 975 / 975 Balance 350 / 350 -325 / -325 Intake: IV 50 / 50 50 / 50 Zosyn 2.25 gm In Dextrose 5% in 50 / 50 50 / 50 Water 50 ml @ 100 mls/hr IV Q6H ON LICENSE OF [facility] Rx#:[id number] Oral 300 / 300 600 / 600 Output: Void Amount 975 / 975 Other: Meal Breakfast Percent of Meal Consumed 100% Feeding Ability Independent # Voids 2 # Bowel Movements 1 Exam: Constitutional; Afebrile, cooperative, alert, not in distress. Eyes- No icterus, , No periorbital swelling Ears- Ext ear normal, hearing normal to conversation. Neck- Midline trachea, supple Respiratory system: Air Entry equal on both sides, No crackles or wheezing, no rhonchi. CVS- Rate rhythm regular, S1,S2 heard, no gallop, no rub. Abdomen- Soft nontender abdomen, no organomegaly, no tenderness, no guarding or rigidity, DISTRICT ENGINEER- AOOx3, moving all extremities, no gross focal deficit noted. Medical - PN: Obj Da - Labs CBC & Chem 7: 11/14/17 05:25 11/14/17 05:25 Labs: Abnormal Lab Results 11/14/17 11/14/17 11/13/17 05:25 05:25 04:15 RBC 3.49 L Hgb 9.9 L Hct 30.0 L RDW 15.8 H Lymph % (Auto) [place] % (Auto) 13.2 H Lymph # (Auto) [place] # (Auto) 1.0 H ESR BUN 50 H Creatinine 2.8 H Glucose 199 H Hemoglobin A1c 8.5 H Uric Acid 9.9 H Magnesium 2.7 H C-Reactive Protein 7.5 H Triglycerides 173 H 11/13/17 11/13/17 11/13/17 04:15 04:15 04:15 RBC 3.60 L Hgb 10.4 L Hct 31.1 L RDW 16.4 H Lymph % (Auto) 12.9 L [place] % (Auto) Lymph # (Auto) 1.0 L [place] # (Auto) ESR 107 H BUN 45 H Creatinine 2.4 H Glucose 116 H Hemoglobin A1c Uric Acid 10.4 H Magnesium 2.6 H C-Reactive Protein Triglycerides 181 H 11/12/17 11/12/17 11:00 11:00 RBC 3.90 L Hgb 10.9 L Hct 33.3 L RDW 16.3 H Lymph % (Auto) [place] % (Auto) Lymph # (Auto) [place] # (Auto) ESR BUN 47 H Creatinine 2.5 H Glucose 192 H Hemoglobin A1c 8.5 H Uric Acid Magnesium C-Reactive Protein 6.8 H Triglycerides Meds: Medications Acetaminophen (Tylenol) 650 mg PO Q6HP PRN PRN Reason: PAIN/FEVER > 101 Last Admin: 11/13/17 20:26 Dose: 650 mg Hydrocodone Bitart/Acetaminophen ([place] 5/325mg) 1 tab PO Q4HP PRN PRN Reason: PAIN LEVEL 3-6 Albuterol Sulfate (Ventolin) 2.5 mg NEB Q2HP PRN PRN Reason: Shortness Of Breath Amlodipine Besylate (Norvasc) 10 mg PO HS ON LICENSE OF [facility] Last Admin: 11/13/17 20:26 Dose: 10 mg Atorvastatin Calcium (Lipitor) 20 mg PO MoTh@2100 ON LICENSE OF [facility] Dextrose (Dextrose 50%) 0 ml IV UD PRN PRN Reason: Hypoglycemia Diagnostic Test (Pha) (Accu-Chek) 1 each FS ACHS ON LICENSE OF [facility] Last Admin: 11/14/17 12:30 Dose: 1 each Fish Oil (Fish Oil) 1,000 mg PO DAILY ON LICENSE OF [facility] Last Admin: 11/14/17 07:56 Dose: 1,000 mg Glucose (Insta-Glucose) 15 gm PO PRN PRN PRN Reason: Hypoglycemia Heparin Sodium (Porcine) (Heparin) 5,000 unit SQ Q12 ON LICENSE OF [facility] Last Admin: 11/14/17 07:56 Dose: 5,000 unit Heparin Sodium (Porcine) (Heparin Flush) 2 ml IV Q12 ON LICENSE OF [facility] Last Admin: 11/14/17 07:56 Dose: Not Given Hydromorphone HCl (Dilaudid) 0.5 mg IV Q2HP PRN PRN Reason: PAIN LEVEL > 6 Piperacillin Sod/Tazobactam (Sod 2.25 gm/ Dextrose) 50 mls @ 100 mls/hr IV Q6H ON LICENSE OF [facility] Last Admin: 11/14/17 12:30 Dose: 100 mls/hr Gentamicin Sulfate 40 mg/Clindamycin Phosphate 300 mg/Bacitracin 25,000 unit/ Sodium Chloride 503 mls @ 0 mls/hr IRR BID ON LICENSE OF [facility] Last Admin: 11/14/17 12:30 Dose: 50 mls/hr Insulin Glargine (Lantus) 60 unit SQ HS ON LICENSE OF [facility] Last Admin: 11/13/17 20:27 Dose: 60 unit Insulin Human Lispro (Humalog) 0 unit SQ ACHS ON LICENSE OF [facility]; Protocol Last Admin: 11/14/17 12:35 Dose: 12 unit Iron Carb/Multivit/Trust Mail Clerk/Folic Acid (Multivitamin W/Minerals) 1 tab PO DAILY ON LICENSE OF [facility] Last Admin: 11/14/17 07:55 Dose: 1 tab Losartan Potassium (Cozaar) 100 mg PO DAILY ON LICENSE OF [facility] Last Admin: 11/14/17 07:55 Dose: 100 mg Magnesium Hydroxide (Milk Of Magnesia) 30 ml PO DAILYP PRN PRN Reason: Constipation Magnesium Oxide (Magnesium Oxide) 400 mg PO QHS ON LICENSE OF [facility] Last Admin: 11/13/17 20:29 Dose: 400 mg Sodium Chloride (Saline Flush) 10 ml IV Q8 ON LICENSE OF [facility] Last Admin: 11/14/17 05:04 Dose: 10 ml Terazosin HCl (Hytrin) 4 mg PO HS ON LICENSE OF [facility] Last Admin: 11/13/17 20:46 Dose: 4 mg Torsemide (Demadex) 5 mg PO DAILY ON LICENSE OF [facility] Last Admin: 11/14/17 07:55 Dose: 5 mg Vitamin D (Vitamin D3) 10,000 unit PO DAILY ON LICENSE OF [facility] Last Admin: 11/14/17 07:56 Dose: 10,000 unit Medical - PN: A/P - Time Spent With Patient Total time spent is greater than 50% in coordination of care (as documented) at patient's floor/unit and/or counseling patient: - Narrative A/P Narrative: A/P Left 5th MT Osteomyelitis with Abscess Sepsis HTN HLD Chronic Kidney Disease Uncontrolled Diabetes Anemia Plan continue IV vanco and zosyn get picc line Wound care consulted, ID consult wound care physician planing hbot Deep tissue cultures sent, results pending. enterococcus growin, sensitivity pending. Gentle hydration Resume home dose of lantus, ssi for glucose control. Increase dose of lantus to 70units qhs home meds resumed. DVT hep sq Diet Carb consistent. Full code. Medical - PN: Qual - VTE Deep Vein Thrombosis/Pulmonary Embolism Present on Admission: No
[2017-11-14] MEDS ORDERED: VANCOMYCIN PER PHARMACY IV ONE (17:15)
[2017-11-14] MEDS ORDERED: VANCOMYCIN 2,000 MG in 0.9 % SODIUM CHLORIDE 500 ML IV ONE (17:30)
[2017-11-14] MEDS ORDERED: INSULIN GLARGINE, HUMAN 1 UNIT/0.01 ML SQ SCH (21:00)
[2017-11-14] MEDS: TERAZOSIN 1 MG CAPSULE PO SCH (21:53)
[2017-11-14] MEDS: amLODIPine 10 MG TABLET PO SCH (21:53)
[2017-11-14] MEDS: MAGNESIUM OXIDE 400 MG TABLET PO SCH (21:53)
[2017-11-15] MEDS: 0.9 % SODIUM CHLORIDE 10 ML SYRINGE IV SCH ×3 (04:30→20:56)
[2017-11-15 05:32] LABS: Basophils # (Auto) 0 K/mcL (0.0-0.3); Basophils % (Auto) 0.6 % (0.0-2.0); Eosinophils # (Auto) 0.3 K/mcL (0.0-0.7); Eosinophils % (Auto) 4.1 % (0.0-7.0); Granulocytes % (Auto) 60.9 % (38.0-78.0); Lymphocytes # (Auto) 1.7 K/mcL (1.5-4.8); Lymphocytes % (Auto) 22.8 % (15.5-49.0); Mean Cell Volume 86.1 fL (80.0-100.0); Mean Corpuscular HGB Conc 32.8 g/dL (31.0-36.0); Mean Corpuscular Hemoglobin 28.3 pg (26.0-34.0); Monocytes # (Auto) 0.9 K/mcL (0.1-0.9); Monocytes % (Auto) 11.6 % (1.0-12.0); Platelet Count 220 K/mcL (140-440); RBC 3.74 M/mcL (4.50-5.90); Red Cell Distribution Width 15.7 % (11.5-14.5)
[2017-11-15 06:11] LABS: ALT/SGPT 8 U/l (0-40); Albumin 3.6 gm/dL (3.2-5.2); Alkaline Phosphatase 64 U/L (39-117); Bilirubin,Direct < 0.2 mg/dL (0.0-0.3); Blood Urea Nitrogen 48 mg/dl (8-23); Gamma Glutamyl Transpeptidase 28 U/L (8-61); Uric Acid 9.7 mg/dL (2.5-8.0)
[2017-11-15] MEDS ORDERED: VANCOMYCIN PER PHARMACY IV SCH (06:45)
[2017-11-15] MEDS: LOSARTAN 50 MG TABLET PO SCH (08:19)
[2017-11-15] MEDS: FISH OIL 1,000 MG CAPSULE PO SCH (08:19)
[2017-11-15] MEDS: INSULIN LISPRO 1 UNIT/0.01 ML UNIT SQ SCH ×4 (08:19→20:55)
[2017-11-15] MEDS: HEPARIN 5,000 UNIT/ML VIAL SQ SCH ×2 (08:19→20:56)
[2017-11-15] MEDS: MULTIVIT,THER IRON,CA,FA & MIN 1 TABLET PO SCH (08:19)
[2017-11-15] MEDS: TORSEMIDE 10 MG TABLET PO SCH (08:19)
[2017-11-15] MEDS: VITAMIN D3 5,000 UNIT CAPSULE PO SCH (08:20)
[2017-11-15] MEDS ORDERED: VANCOMYCIN 1,500 MG in 0.9 % SODIUM CHLORIDE 500 ML IV SCH (09:00)
[2017-11-15] MEDS: GENTAMICIN SULFATE 40 MG, CLINDAMYCIN 300 MG, BACITRACIN 25,000 UNIT in SODIUM CHLORIDE... IRR SCH ×2 (12:31→23:43)
[2017-11-15 16:13] LABS: Vancomycin,Random 16.8 ug/mL
[2017-11-15] MEDS ORDERED: VANCOMYCIN 1,000 MG in 0.9 % SODIUM CHLORIDE 250 ML IV ONE (16:45)
--- NOTE | 2017-11-15 17:12 | Internal Med Progress Note ---
Medical - PN: Subj Patient information: Note initiated : 11/15/17 at 5:09 pm Service Date, if different from initiated Date: [] Patient: Conrad Paul a 72 y/o M admitted on 11/12/17 for Left 5th MT Osteomyelitis with Abscess. Chief Complaint: [] Interval history: Mr. Conrad Paul is a 72 year old M with a past medical history of insulin dependant TIIDM resulting in a right ndxks-aee-opfr leg amputation, hyperlipidemia, hypertension, COPD and sleep apnea that presents today with acute worsening of foot ulcer located near his left 5th distal metatarsal. . He had been attending weekly wound care appointments with Dr. Harrington for four months which he states has been helping up until his presentation today. He states that his wound does not cause him pain due to his sensory neuropathy. He denies sick contacts, fever, chest pain, N/V/D, abdominal pain, melena, bleeding or bruising. He admits to chills, night sweats, cough and sputum production. A lower limb MRI in the ER demonstrated osteomyelitis of the left 5th metatarsal and phalange with no gas or fluid. He was started on 2.25g of IV Zosyn and 1.5g IV Vancomycin in the ER and will be admitted for medical management along with wound care consultation 10/14 Pt seen examined, no acute overnight issues, tolerating po dietwell, wound recently wrapped by Dr Maya Pt labs st able cultures neg so far Plan for picc 10/15 Patient seen and examined, no acute overnight events. Chest x-ray done, some lung nodules noted. CXR was ordered for picc placement per protocol, unfortunately done before the picc was placed he will get CT chest as outpatient for lung nodule evaluation labs stable ID to consult 10/16 Patient seen and examined no acute overnight events, patient to be seen by infectious disease today. He will get hyperbaric treatment today. He denies any acute complaints or concerns. microbiology sensitivity pending. cellulitis much better Pertinent ROS: Denies headache, dizziness Denies chest pain, palpitations Denies cough or shortness of breath Denies abdominal pain, nausea or vomiting. - Constitutional Vitals: Vital Signs Temp Pulse Resp BP Pulse Ox 97.8 F 70 20 149/88 96 11/15/17 16:00 11/15/17 04:00 11/15/17 16:00 11/15/17 16:00 11/15/17 16:00 Period Temp Pulse Resp BP Sys/[place]ata Pulse Ox Last 24 Hr 97.3 F-98.1 F 60-70 16-24 128-166/50-88 93-96 Intake and Output 11/15/17 11/15/17 11/15/17 05:59 13:59 21:59 Intake Total 240 / 240 Balance 240 / 240 Intake & Output: Intake & Output 11/15/17 11/15/17 11/15/17 05:59 13:59 21:59 Intake Total 240 / 240 Balance 240 / 240 Intake: Oral 240 / 240 Other: # Voids 2 # Bowel Movements 1 Exam: Constitutional; Afebrile, cooperative, alert, not in distress. Respiratory system: Air Entry equal on both sides, No crackles or wheezing, no rhonchi. CVS- Rate rhythm regular, S1,S2 heard, no gallop, no rub. Abdomen- Soft nontender abdomen, no organomegaly, no tenderness, no guarding or rigidity, CORN HUSKER- AOOx3, moving all extremities, no gross focal deficit noted. Medical - PN: Obj Da - Labs CBC & Chem 7: 11/15/17 04:10 11/15/17 04:10 Labs: Abnormal Lab Results 11/15/17 11/15/17 11/14/17 04:10 04:10 05:25 RBC 3.74 L Hgb 10.6 L Hct 32.2 L RDW 15.7 H Lymph % (Auto) [place] % (Auto) Lymph # (Auto) [place] # (Auto) ESR BUN 48 H 50 H Creatinine 2.6 H 2.8 H Glucose 185 H 199 H Hemoglobin A1c Uric Acid 9.7 H 9.9 H Magnesium 2.7 H 2.7 H C-Reactive Protein Triglycerides 206 H 173 H 11/14/17 11/13/17 11/13/17 05:25 04:15 04:15 RBC 3.49 L Hgb 9.9 L Hct 30.0 L RDW 15.8 H Lymph % (Auto) [place] % (Auto) 13.2 H Lymph # (Auto) [place] # (Auto) 1.0 H ESR 107 H BUN Creatinine Glucose Hemoglobin A1c 8.5 H Uric Acid Magnesium C-Reactive Protein 7.5 H Triglycerides 11/13/17 11/13/17 04:15 04:15 RBC 3.60 L Hgb 10.4 L Hct 31.1 L RDW 16.4 H Lymph % (Auto) 12.9 L [place] % (Auto) Lymph # (Auto) 1.0 L [place] # (Auto) ESR BUN 45 H Creatinine 2.4 H Glucose 116 H Hemoglobin A1c Uric Acid 10.4 H Magnesium 2.6 H C-Reactive Protein Triglycerides 181 H Meds: Medications Acetaminophen (Tylenol) 650 mg PO Q6HP PRN PRN Reason: PAIN/FEVER > 101 Last Admin: 11/13/17 20:26 Dose: 650 mg Hydrocodone Bitart/Acetaminophen ([place] 5/325mg) 1 tab PO Q4HP PRN PRN Reason: PAIN LEVEL 3-6 Albuterol Sulfate (Ventolin) 2.5 mg NEB Q2HP PRN PRN Reason: Shortness Of Breath Amlodipine Besylate (Norvasc) 10 mg PO HS [facility] Last Admin: 11/14/17 21:53 Dose: 10 mg Atorvastatin Calcium (Lipitor) 20 mg PO MoTh@2100 [facility] Dextrose (Dextrose 50%) 0 ml IV UD PRN PRN Reason: Hypoglycemia Diagnostic Test (Pha) (Accu-Chek) 1 each FS ACHS [facility] Last Admin: 11/15/17 12:31 Dose: 1 each Fish Oil (Fish Oil) 1,000 mg PO DAILY [facility] Last Admin: 11/15/17 08:19 Dose: 1,000 mg Glucose (Insta-Glucose) 15 gm PO PRN PRN PRN Reason: Hypoglycemia Heparin Sodium (Porcine) (Heparin) 5,000 unit SQ Q12 [facility] Last Admin: 11/15/17 08:19 Dose: 5,000 unit Heparin Sodium (Porcine) (Heparin Flush) 2 ml IV Q12 [facility] Last Admin: 11/15/17 08:20 Dose: Not Given Hydromorphone HCl (Dilaudid) 0.5 mg IV Q2HP PRN PRN Reason: PAIN LEVEL > 6 Gentamicin Sulfate 40 mg/Clindamycin Phosphate 300 mg/Bacitracin 25,000 unit/ Sodium Chloride 503 mls @ 0 mls/hr IRR BID [facility] Last Admin: 11/15/17 12:31 Dose: 1 mls/hr Vancomycin HCl 1,000 mg/ (Sodium Chloride) 250 mls @ 250 mls/hr IV ONCE ONE Stop: 11/15/17 17:44 Insulin Glargine (Lantus) 70 unit SQ [facility] Last Admin: 11/14/17 21:53 Dose: 70 unit Insulin Human Lispro (Humalog) 0 unit SQ [facility]; Protocol Last Admin: 11/15/17 15:25 Dose: 12 unit Iron Carb/Multivit/Core Man/Folic Acid (Multivitamin W/Minerals) 1 tab PO DAILY [facility] Last Admin: 11/15/17 08:19 Dose: 1 tab Losartan Potassium (Cozaar) 100 mg PO DAILY [facility] Last Admin: 11/15/17 08:19 Dose: 100 mg Magnesium Hydroxide (Milk Of Magnesia) 30 ml PO DAILYP PRN PRN Reason: Constipation Magnesium Oxide (Magnesium Oxide) 400 mg PO QHS [facility] Last Admin: 11/14/17 21:53 Dose: 400 mg Sodium Chloride (Saline Flush) 10 ml IV Q8 [facility] Last Admin: 11/15/17 14:35 Dose: Not Given Terazosin HCl (Hytrin) 4 mg PO [facility] Last Admin: 11/14/17 21:53 Dose: 4 mg Torsemide (Demadex) 5 mg PO DAILY [facility] Last Admin: 11/15/17 08:19 Dose: 5 mg Vancomycin HCl (Vancomycin Per Pharmacy) 1 order IV [facility] Vitamin D (Vitamin D3) 10,000 unit PO DAILY [facility] Last Admin: 11/15/17 08:20 Dose: 10,000 unit Medical - PN: A/P - Time Spent With Patient Total time spent is greater than 50% in coordination of care (as documented) at patient's floor/unit and/or counseling patient: - Narrative A/P Narrative: A/P Left 5th MT Osteomyelitis with Abscess Sepsis HTN HLD Chronic Kidney Disease Uncontrolled Diabetes Anemia Plan start on ampicillin today as per ID will need picc Wound care consulted, ID consult wound care physician planing hbot Deep tissue cultures sent, results pending. enterococcus growin, abnd strep viridans growing, sensitivity pending. Resume home dose of lantus, ssi for glucose control. Increase dose of lantus to 80 units qhs home meds resumed. DVT hep sq Diet Carb consistent. Full code. Medical - PN: Qual - VTE Deep Vein Thrombosis/Pulmonary Embolism Present on Admission: No
[2017-11-15] MEDS ORDERED: AMPICILLIN SODIUM 2 GM VIAL IV SCH (17:15)
--- NOTE | 2017-11-15 17:23 | Internal Medicine Consult Note ---
Medical - CN: HPI - Data of Consult Consult date: 11/15/17 Requesting Physician: Rigo Whaley Primary Care Provider: Gallo Blevins Family Provider: Gallo Blevins - Consult Narrative Reason for consult: MRI-proven OM of foot, need recs for antibiotics History of present illness: Pt not in room. Gone for Hyperbaric Oxygen therapy. HPI obtained from admitting physician and chart review Mr. Paul is a 72 year old man with complicated PMHx pertinent for: -DM (insulin- dependent), A1C of 8.5, with peripheral neuropathy -Rt BKA -Left 5th metatarsal ulcer (classified as Choi 2 by Wound care), in f/u in Wound care clinic Pt was admitted on 11/12 with c/o acute onset redness, swelling over left 5th metatarsal ulcer. He endorsed chills, night sweats, and productive cough. Denies sick contacts, fever. A lower limb MRI in the ER demonstrated osteomyelitis of the left 5th metatarsal and phalanges with no gas or fluid. Admission VS were normal, with temp of 98 F and BP of 152/65, O2 sats 94% on RA. His WBC was 10.1 with 70% PMNs. Wound Cx were sent along with blood Cx. Pt was started on IV Zosyn at 2.25 gm q6, and IV Vanc 1.5 gm. Hospital course was uneventful. His wound Cx finally speciated as Streptococcus viridans and Enterococcus species. At time of visit today, patient was gone to hyperbaric oxygen therapy treatment and could not be examined. CC: Rigo Whaley ROS unobtainable: other Review of systems: Patient not in room Medical - CN: PMH Family history: reviewed and not pertinent Smoking status: Never smoker Have you smoked in the last 12 months: No Drug use: marijuana Alcohol use: none Medical - CN: Meds Home Medications Medication Instructions Recorded Confirmed Type Cholecalciferol (Vitamin D3) 10,000 unit PO QDAY 03/06/16 11/12/17 History [Vitamin D3] Fish Oil 1,000 mg PO DAILY 03/06/16 11/12/17 History Insulin Aspart [Novolog] 27 unit SQ TID 03/06/16 11/12/17 History Insulin Glargine, Human [Lantus] 62 unit SQ HS 03/06/16 11/13/17 History Losartan [Cozaar] 100 mg PO DAILY 03/06/16 11/12/17 History Magnesium Oxide [Magnesium] 400 mg PO QHS 03/06/16 11/12/17 History Multivit,Th Iron,Other Min 1 each PO QDAY 03/06/16 11/12/17 History [Complete Multivitamin] Rosuvastatin [Crestor] 5 mg PO 2-3XW 03/06/16 11/12/17 History Terazosin [Hytrin] 4 mg PO HS 03/06/16 11/12/17 History Torsemide 5 mg PO QDAY 03/06/16 11/12/17 History amLODIPine [Norvasc] 10 mg HS 03/06/16 11/12/17 History Allergies Allergy/AdvReac Type Severity Reaction Status Date / Time daptomycin Allergy Unknown Verified 11/12/17 16:18 ceftriaxone [From Rocephin] Allergy Unknown Verified 11/12/17 10:36 gentamicin Allergy Rash Verified 11/12/17 10:36 levofloxacin [From Levaquin] Allergy Unknown Verified 11/12/17 10:36 Gfyktge-Pvx-Ues Reductase AdvReac Joint Pain Verified 11/12/17 10:36 Inhibitor Medical - CN: Exam - Constitutional Vitals: Temp Pulse Resp BP Pulse Ox 97.8 F 70 20 149/88 96 11/15/17 16:00 11/15/17 04:00 11/15/17 16:00 11/15/17 16:00 11/15/17 16:00 - Additional findings Additional findings: Could not be performed as patient was gone for hyperbaric oxygen therapy Medical - CN: Result - Labs CBC & Chem 7: 11/15/17 04:10 11/15/17 04:10 Labs: Short CBC 11/15/17 Range/Units 04:10 WBC 7.4 (4.5-11.0) K/mcL Hgb 10.6 L (13.5-16.5) g/dL Hct 32.2 L (41.0-55.0) % Plt Count 220 (140-440) K/mcL BMP 11/15/17 04:10 Sodium 139 Potassium 4.8 Chloride 100 Carbon Dioxide 23 BUN 48 H Creatinine 2.6 H Glucose 185 H Calcium 9.3 Liver Function 11/15/17 Range/Units 04:10 Total Bilirubin 0.2 (0.0-1.0) mg/dL Direct Bilirubin < 0.2 (0.0-0.3) mg/dL GGT 28 (8-61) U/L AST 10 (0-37) U/l ALT 8 (0-40) U/l Alkaline Phosphatase 64 (39-117) U/L Albumin 3.6 (3.2-5.2) gm/dL Medical - CN: A/P - Narrative A/P Narrative: 72-year-old man with obesity, uncontrolled insulin-dependent diabetes mellitus, history of right BKA, nonhealing ulcer over left fifth distal metatarsal, now with: 1. Focal osteomyelitis of head and neck of fifth metatarsal: - per MRI findings, accompanied with with adjacent 3 cm fluid collection -Tissue cultures growing enterococcus species [sensitive to ampicillin resistance to vancomycin] and Streptococcus viridans [final speciation and sensitivities pending] 2. No sepsis 3. CKD: Current creatinine clearance of 52 Recommendations: -As there is a plan to salvage the foot, will recommend a 6 week course of IV antibiotics. -Stop IV Vanco. Start IV Zosyn at 3.375 g every 6 hours -As sensitivities for Streptococcus viridans finalized tomorrow, will decide the final choice and dose of home-going IV antibiotics -Regular wound care, pressure offloading for wound healing per Dr. Harrington We will follow Magdy Flores MD Infectious disease
--- NOTE | 2017-11-15 17:25 | General Surgery Progress Note ---
Subjective Narrative: Note initiated : 11/15/17 at 5:22 pm Service Date, if different from initiated Date: [] Patient: Conrad Paul 72 y/o M admitted on 11/12/17 for Left 5th MT Osteomyelitis with Abscess. Chief Complaint: [] Patient seen on rounds this morning and again later in the day at wound clinic and [facility]. Patient is doing well clinically and his left foot inflammatory changes are resolving. Started on HBOT for DFU Choi 3 Left foot. Objective Temp Pulse Resp BP Pulse Ox 97.8 F 70 20 149/88 96 11/15/17 16:00 11/15/17 04:00 11/15/17 16:00 11/15/17 16:00 11/15/17 16:00 AVSS. No changes MARCO. L/E. Resolving inflammatory changes. CXR reviewed. Suggestion of pulmonary nodules. CT suggested, BUT patient does NOT want to get CT scan. Tolerated FIRST of 20 HBOT uneventfully today. - Additional Data Intake & Output - Last 24 hours: Intake & Output 11/13/17 11/14/17 11/15/17 11/16/17 05:59 05:59 05:59 05:59 Intake Total 1150 / 1150 1900 / 1900 940 / 940 240 / 240 Output Total 1300 / 1300 700 / 700 975 / 975 Balance -150 / -150 1200 / 1200 -35 / -35 240 / 240 Weight 307 lb 306 lb 305 lb - Labs 11/15/17 04:10 11/15/17 04:10 Diabetes panel 11/15/17 Range/Units 04:10 Sodium 139 (133-145) mmol/L Potassium 4.8 (3.3-5.1) mmol/L Chloride 100 (96-108) mmol/L Carbon Dioxide 23 (22-30) mmol/L BUN 48 H (8-23) mg/dl Creatinine 2.6 H (0.7-1.2) mg/dl Glucose 185 H (70-105) mg/dL Calcium 9.3 (8.6-10.4) mg/dl AST 10 (0-37) U/l ALT 8 (0-40) U/l Alkaline Phosphatase 64 (39-117) U/L Total Protein 7.2 (5.9-8.4) gm/dL Albumin 3.6 (3.2-5.2) gm/dL Triglycerides 206 H (<150) mg/dl Calcium panel 11/15/17 Range/Units 04:10 Calcium 9.3 (8.6-10.4) mg/dl Phosphorus 4.0 (2.7-4.5) mg/dL Albumin 3.6 (3.2-5.2) gm/dL Pituitary panel 11/15/17 Range/Units 04:10 Sodium 139 (133-145) mmol/L Potassium 4.8 (3.3-5.1) mmol/L Chloride 100 (96-108) mmol/L Carbon Dioxide 23 (22-30) mmol/L BUN 48 H (8-23) mg/dl Creatinine 2.6 H (0.7-1.2) mg/dl Glucose 185 H (70-105) mg/dL Calcium 9.3 (8.6-10.4) mg/dl Adrenal panel 11/15/17 Range/Units 04:10 Sodium 139 (133-145) mmol/L Potassium 4.8 (3.3-5.1) mmol/L Chloride 100 (96-108) mmol/L Carbon Dioxide 23 (22-30) mmol/L BUN 48 H (8-23) mg/dl Creatinine 2.6 H (0.7-1.2) mg/dl Glucose 185 H (70-105) mg/dL Calcium 9.3 (8.6-10.4) mg/dl Total Bilirubin 0.2 (0.0-1.0) mg/dL AST 10 (0-37) U/l ALT 8 (0-40) U/l Alkaline Phosphatase 64 (39-117) U/L Total Protein 7.2 (5.9-8.4) gm/dL Albumin 3.6 (3.2-5.2) gm/dL Assessment and Plan (1) Sepsis Problem details: CSSSI, osteomyelitis in DFU, Choi 2, Uncontrolled diabetes Status: Acute Current Visit: Yes - Time Spent With Patient Total time spent is greater than 50% in coordination of care (as documented) at patient's floor/unit and/or counseling patient: Assessment: Satisfactory progress. Plan: Continue current treatment.
[2017-11-15] MEDS: AMPICILLIN SODIUM 2 GM in 0.9 % SODIUM CHLORIDE 100 ML IV SCH ×2 (17:58→23:43)
--- NOTE | 2017-11-15 19:32 | XRay Report ---
CLINICAL INFORMATION: ITS.REASON: PICC Line Placement COMPARISON: 11/14/2017 FINDINGS: Right PICC line tip overlies the SVC right atrial junction. Mild cardiomegaly is accentuated by portable technique and rightward rotation. Mediastinum and pulmonary vessels are normal. Is minor bibasilar atelectasis IMPRESSION: PICC line satisfactory position. No acute disease Interpreted and Authenticated by: Adeel Reddy 11/15/17
[2017-11-15] MEDS: MAGNESIUM OXIDE 400 MG TABLET PO SCH (20:55)
[2017-11-15] MEDS: TERAZOSIN 1 MG CAPSULE PO SCH (20:55)
[2017-11-15] MEDS: amLODIPine 10 MG TABLET PO SCH (20:55)
[2017-11-15] MEDS ORDERED: INSULIN GLARGINE, HUMAN 1 UNIT/0.01 ML SQ SCH (21:00)
[2017-11-15] MEDS ORDERED: ATORVASTATIN 20 MG TABLET PO SCH (21:00)
[2017-11-16] MEDS: AMPICILLIN SODIUM 2 GM in 0.9 % SODIUM CHLORIDE 100 ML IV SCH ×2 (05:45→12:53)
[2017-11-16] MEDS: 0.9 % SODIUM CHLORIDE 10 ML SYRINGE IV SCH ×2 (05:46→14:00)
[2017-11-16 05:47] LABS: Basophils # (Auto) 0 K/mcL (0.0-0.3); Basophils % (Auto) 0.6 % (0.0-2.0); Eosinophils # (Auto) 0.2 K/mcL (0.0-0.7); Eosinophils % (Auto) 2.9 % (0.0-7.0); Granulocytes % (Auto) 58.8 % (38.0-78.0); Lymphocytes # (Auto) 1.8 K/mcL (1.5-4.8); Lymphocytes % (Auto) 25.2 % (15.5-49.0); Mean Cell Volume 86.1 fL (80.0-100.0); Mean Corpuscular HGB Conc 33.3 g/dL (31.0-36.0); Mean Corpuscular Hemoglobin 28.7 pg (26.0-34.0); Monocytes # (Auto) 0.9 K/mcL (0.1-0.9); Monocytes % (Auto) 12.5 % (1.0-12.0); Platelet Count 222 K/mcL (140-440); RBC 3.49 M/mcL (4.50-5.90); Red Cell Distribution Width 15.5 % (11.5-14.5)
[2017-11-16 06:20] LABS: ALT/SGPT 7 U/l (0-40); Albumin 3.7 gm/dL (3.2-5.2); Albumin/Globulin Ratio 1.2 (1.0-2.3); Alkaline Phosphatase 58 U/L (39-117); Bilirubin,Direct < 0.2 mg/dL (0.0-0.3); Blood Urea Nitrogen 45 mg/dl (8-23); Gamma Glutamyl Transpeptidase 27 U/L (8-61); Uric Acid 9.8 mg/dL (2.5-8.0)
[2017-11-16] MEDS: FISH OIL 1,000 MG CAPSULE PO SCH (08:24)
[2017-11-16] MEDS: TORSEMIDE 10 MG TABLET PO SCH (08:24)
[2017-11-16] MEDS: INSULIN LISPRO 1 UNIT/0.01 ML UNIT SQ SCH ×2 (08:24→13:05)
[2017-11-16] MEDS: LOSARTAN 50 MG TABLET PO SCH (08:25)
[2017-11-16] MEDS: MULTIVIT,THER IRON,CA,FA & MIN 1 TABLET PO SCH (08:25)
[2017-11-16] MEDS: VITAMIN D3 5,000 UNIT CAPSULE PO SCH (08:25)
[2017-11-16] MEDS: HEPARIN 5,000 UNIT/ML VIAL SQ SCH (08:26)
[2017-11-16] MEDS: GENTAMICIN SULFATE 40 MG, CLINDAMYCIN 300 MG, BACITRACIN 25,000 UNIT in SODIUM CHLORIDE... IRR SCH (10:12)
--- NOTE | 2017-11-16 10:18 | Internal Med Progress Note ---
Medical - PN: Subj Patient information: Note initiated : 11/16/17 at 10:15 am Service Date, if different from initiated Date: [] Patient: Conrad Paul 72 y/o M admitted on 11/12/17 for Left 5th MT Osteomyelitis with Abscess. Chief Complaint: [] Interval history: Patient lying in the bed. Feeling much better, denies any symptoms including fever, headache, chills, nausea vomiting, diarrhea. Says he is ready to go home. Discussed with him that we have a plan for his ongoing antibiotics and 2 different bacteria were isolated from his tissue cultures. Discussed the side effects of the antibiotics, and when to seek medical attention and also what else could go wrong with his wound which would warrant medical attention. Patient already has a PICC line, and he voiced understanding to above. - Constitutional Vitals: Vital Signs Temp Pulse Resp BP Pulse Ox 98.2 F 61 16 155/75 92 11/16/17 07:04 11/16/17 07:04 11/16/17 07:04 11/16/17 07:04 11/16/17 07:04 Period Temp Pulse Resp BP Sys/[place] Pulse Ox Last 24 Hr 97.3 F-98.6 F 61-82 16-20 129-167/64-88 92-96 Intake and Output 11/15/17 11/16/17 11/16/17 21:59 05:59 13:59 Intake Total 340 / 340 600 / 600 240 / 240 Balance 340 / 340 600 / 600 240 / 240 Weight 305 lb Intake & Output: Intake & Output 11/15/17 11/16/17 11/16/17 21:59 05:59 13:59 Intake Total 340 / 340 600 / 600 240 / 240 Balance 340 / 340 600 / 600 240 / 240 Weight 305 lb Intake: IV 100 / 100 100 / 100 Ampicillin 2 gm In Sodium 100 / 100 100 / 100 Chloride 0.9% 100 ml @ 100 mls/ hr IV Q6H [facility] Rx#:[id number] Oral 240 / 240 500 / 500 240 / 240 Other: Meal Breakfast Percent of Meal Consumed 100% Feeding Ability Independent # Voids 1 General appearance: no acute distress, obese - Respiratory Respiratory exam: Present: CTAB. Absent: rales, respiratory distress, rhonchi, stridor, wheezes - Cardiovascular Cardiovascular exam: Present: +S1, +S2. Absent: clicks, gallop, systolic murmur - GI/Abdominal GI/Abdominal exam: Present: normal bowel sounds, soft - Extremities Exam Extremities exam: Absent: calf tenderness, pedal edema Additional comments: The left foot is wrapped in the bandage. On examination has a dry ulcer on the lateral side of the left foot, no purulence expressed, probes to the bone, nontender, no foul smell Medical - PN: Obj Da - Labs CBC & Chem 7: 11/16/17 04:00 11/16/17 04:00 Labs: Abnormal Lab Results 11/16/17 11/16/17 11/15/17 04:00 04:00 04:10 RBC 3.49 L Hgb 10.0 L Hct 30.0 L RDW 15.5 H [place] % (Auto) 12.5 H [place] # (Auto) BUN 45 H 48 H Creatinine 2.3 H 2.6 H Glucose 128 H 185 H Uric Acid 9.8 H 9.7 H Magnesium 2.6 H 2.7 H Triglycerides 220 H 206 H 11/15/17 11/14/17 11/14/17 04:10 05:25 05:25 RBC 3.74 L 3.49 L Hgb 10.6 L 9.9 L Hct 32.2 L 30.0 L RDW 15.7 H 15.8 H [place] % (Auto) 13.2 H [place] # (Auto) 1.0 H BUN 50 H Creatinine 2.8 H Glucose 199 H Uric Acid 9.9 H Magnesium 2.7 H Triglycerides 173 H Meds: Medications Acetaminophen (Tylenol) 650 mg PO Q6HP PRN PRN Reason: PAIN/FEVER > 101 Last Admin: 11/13/17 20:26 Dose: 650 mg Hydrocodone Bitart/Acetaminophen ([place] 5/325mg) 1 tab PO Q4HP PRN PRN Reason: PAIN LEVEL 3-6 Albuterol Sulfate (Ventolin) 2.5 mg NEB Q2HP PRN PRN Reason: Shortness Of Breath Amlodipine Besylate (Norvasc) 10 mg PO HS [facility] Last Admin: 11/15/17 20:55 Dose: 10 mg Atorvastatin Calcium (Lipitor) 20 mg PO MoTh@2100 CARMEN Last Admin: 11/15/17 20:55 Dose: 20 mg Dextrose (Dextrose 50%) 0 ml IV UD PRN PRN Reason: Hypoglycemia Diagnostic Test (Pha) (Accu-Chek) 1 each FS ACHS [facility] Last Admin: 11/16/17 08:24 Dose: 1 each Fish Oil (Fish Oil) 1,000 mg PO DAILY [facility] Last Admin: 11/16/17 08:24 Dose: 1,000 mg Glucose (Insta-Glucose) 15 gm PO PRN PRN PRN Reason: Hypoglycemia Heparin Sodium (Porcine) (Heparin) 5,000 unit SQ Q12 [facility] Last Admin: 11/16/17 08:26 Dose: 5,000 unit Heparin Sodium (Porcine) (Heparin Flush) 2 ml IV Q12 [facility] Last Admin: 11/16/17 08:26 Dose: 2 ml Hydromorphone HCl (Dilaudid) 0.5 mg IV Q2HP PRN PRN Reason: PAIN LEVEL > 6 Gentamicin Sulfate 40 mg/Clindamycin Phosphate 300 mg/Bacitracin 25,000 unit/ Sodium Chloride 503 mls @ 0 mls/hr IRR BID [facility] Last Admin: 11/15/17 23:43 Dose: 1 mls/hr Ampicillin Sodium 2 gm/ Sodium (Chloride) 100 mls @ 100 mls/hr IV Q6H [facility] Last Admin: 11/16/17 05:45 Dose: 100 mls/hr Insulin Glargine (Lantus) 80 unit SQ [facility] Last Admin: 11/15/17 20:56 Dose: 80 unit Insulin Human Lispro (Humalog) 0 unit SQ [facility]; Protocol Last Admin: 11/16/17 08:24 Dose: Not Given Iron Carb/Multivit/[place]/Folic Acid (Multivitamin W/Minerals) 1 tab PO DAILY [facility] Last Admin: 11/16/17 08:25 Dose: 1 tab Losartan Potassium (Cozaar) 100 mg PO DAILY [facility] Last Admin: 11/16/17 08:25 Dose: 100 mg Magnesium Hydroxide (Milk Of Magnesia) 30 ml PO DAILYP PRN PRN Reason: Constipation Magnesium Oxide (Magnesium Oxide) 400 mg PO QHS [facility] Last Admin: 11/15/17 20:55 Dose: 400 mg Sodium Chloride (Saline Flush) 10 ml IV Q8 [facility] Last Admin: 11/16/17 05:46 Dose: 10 ml Terazosin HCl (Hytrin) 4 mg PO HS [facility] Last Admin: 11/15/17 20:55 Dose: 4 mg Torsemide (Demadex) 5 mg PO DAILY [facility] Last Admin: 11/16/17 08:24 Dose: 5 mg Vitamin D (Vitamin D3) 10,000 unit PO DAILY [facility] Last Admin: 11/16/17 08:25 Dose: 10,000 unit Medical - PN: A/P - Time Spent With Patient Total time spent is greater than 50% in coordination of care (as documented) at patient's floor/unit and/or counseling patient: 15 - 24 minutes - Narrative A/P Narrative: 72-year-old man with obesity, uncontrolled insulin-dependent diabetes mellitus, history of right BKA, nonhealing ulcer over left fifth distal metatarsal, now with: 1. Focal osteomyelitis of head and neck of fifth metatarsal: - per MRI findings, accompanied with with adjacent 3 cm fluid collection, s/p I& D on 11/13 with drainage of purulent fluid, - Tissue cultures growing enterococcus species [sensitive to ampicillin resistance to vancomycin] and Streptococcus viridans [final speciation and sensitivities pending] 2. No sepsis 3. CKD: Current creatinine clearance of 58 (using CG formulla) Recommendations: - Recommend a 6 week course of IV Ampicillin 12 gm q24 hrs, administered through a CADD pump - Start date: 11/14/17 Stop date: 12/25/17 Follow-up labs: CBC, BMP once weekly, and ESR & CRP every 2 weeks Schedule follow-up in ID clinic at [address], [address] [place] [address] in 4 weeks -Regular wound care, pressure offloading for wound healing per Dr. Harrington ID will sign off. Please call back with questions. Magdy Flores MD Infectious disease Medical - PN: Qual - VTE Deep Vein Thrombosis/Pulmonary Embolism Present on Admission: No
--- NOTE | 2017-11-16 13:21 | General Surgery Progress Note ---
Subjective Narrative: Note initiated : 11/16/17 at 1:18 pm Service Date, if different from initiated Date: [] Patient: Conrad Paul 72 y/o M admitted on 11/12/17 for Left 5th MT Osteomyelitis with Abscess. Chief Complaint: [] Patient doing well and keen to go home and continue wound care and HBOT as out patient. Spoke with and reviewed ID note from Dr. Flores. Objective Temp Pulse Resp BP Pulse Ox 97.9 F 70 16 150/65 94 11/16/17 11:52 11/16/17 11:52 11/16/17 11:52 11/16/17 11:52 11/16/17 11:52 AVSS. No changes MARCO. Left foot PU is clean with granulating base and NO purulence, No odor. Surrounding periwound and dorsal surface of foot acute inflammatory changes have resolved . Reviewed recommendations for IV antibiotics as out patient. - Additional Data Intake & Output - Last 24 hours: Intake & Output 11/14/17 11/15/17 11/16/17 11/17/17 05:59 05:59 05:59 05:59 Intake Total 1900 / 1900 940 / 940 940 / 940 340 / 340 Output Total 700 / 700 975 / 975 Balance 1200 / 1200 -35 / -35 940 / 940 340 / 340 Weight 306 lb 305 lb 305 lb - Labs 11/16/17 04:00 11/16/17 04:00 Diabetes panel 11/16/17 Range/Units 04:00 Sodium 141 (133-145) mmol/L Potassium 4.3 (3.3-5.1) mmol/L Chloride 103 (96-108) mmol/L Carbon Dioxide 25 (22-30) mmol/L BUN 45 H (8-23) mg/dl Creatinine 2.3 H (0.7-1.2) mg/dl Glucose 128 H (70-105) mg/dL Calcium 9.3 (8.6-10.4) mg/dl AST 10 (0-37) U/l ALT 7 (0-40) U/l Alkaline Phosphatase 58 (39-117) U/L Total Protein 6.9 (5.9-8.4) gm/dL Albumin 3.7 (3.2-5.2) gm/dL Triglycerides 220 H (<150) mg/dl Calcium panel 11/16/17 Range/Units 04:00 Calcium 9.3 (8.6-10.4) mg/dl Phosphorus 3.6 (2.7-4.5) mg/dL Albumin 3.7 (3.2-5.2) gm/dL Pituitary panel 11/16/17 Range/Units 04:00 Sodium 141 (133-145) mmol/L Potassium 4.3 (3.3-5.1) mmol/L Chloride 103 (96-108) mmol/L Carbon Dioxide 25 (22-30) mmol/L BUN 45 H (8-23) mg/dl Creatinine 2.3 H (0.7-1.2) mg/dl Glucose 128 H (70-105) mg/dL Calcium 9.3 (8.6-10.4) mg/dl Adrenal panel 11/16/17 Range/Units 04:00 Sodium 141 (133-145) mmol/L Potassium 4.3 (3.3-5.1) mmol/L Chloride 103 (96-108) mmol/L Carbon Dioxide 25 (22-30) mmol/L BUN 45 H (8-23) mg/dl Creatinine 2.3 H (0.7-1.2) mg/dl Glucose 128 H (70-105) mg/dL Calcium 9.3 (8.6-10.4) mg/dl Total Bilirubin < 0.2 (0.0-1.0) mg/dL AST 10 (0-37) U/l ALT 7 (0-40) U/l Alkaline Phosphatase 58 (39-117) U/L Total Protein 6.9 (5.9-8.4) gm/dL Albumin 3.7 (3.2-5.2) gm/dL Assessment and Plan (1) Sepsis Problem details: CSSSI, osteomyelitis in DFU, Choi 2, Uncontrolled diabetes Status: Acute Current Visit: Yes - Time Spent With Patient Total time spent is greater than 50% in coordination of care (as documented) at patient's floor/unit and/or counseling patient: Assessment: Satisfactory progress. Agree with discharge from hospital. Plan: IV antibiotics per ID. Local wound care: clean with NS and continue with topical GCB dressing changes daily BID. OFF loading as discussed using Darco Wedge shoe. O K for discharge. Call OR SCHEDULE f/u appointment with wound care clinic before discharge. 15 - 24 minutes
--- NOTE | 2017-11-16 13:23 | Discharge Summary ---
Medical - DS: Prov Patient information: Note initiated : 11/16/17 at 1:17 pm Service Date, if different from initiated Date: [] Patient: Conrad Paul 72 y/o M admitted on 11/12/17 for Left 5th MT Osteomyelitis with Abscess. Chief Complaint: [] Date of admission: 11/12/17 15:20 Discharge date: 11/16/17 Primary care physician: Gallo Blevins Admitting clinician: Rigo Whaley Consults: 11/12/17 12:57 Consult to Physician [CONS] Stat Comment: Consulting Provider: Valdo Harrington Reason For Exam: Physician to Consult 11/12/17 14:59 Consult to Physician [CONS] Stat Comment: Consulting Provider: Rigo Whaley Reason For Exam: Physician to Consult 11/12/17 16:55 Consult to Physician [CONS] Routine Comment: Consulting Provider: Magdy Flores Reason For Exam: Physician to Consult Discharging clinician: Rigo Whaley Medical - DS: Meds - Discharge Medications Prescriptions: Ampicillin Sodium [Ampicillin] 12 gm IV DAILY #40 vial Active and Home Medications: Home Medications Cholecalciferol (Vitamin D3) [Vitamin D3] 10,000 unit PO QDAY 03/06/16 [History Confirmed 11/12/17 Last Taken 03/07/16] Fish Oil 1,000 mg PO DAILY 03/06/16 [History Confirmed 11/12/17 Last Taken 03/07] Insulin Aspart [Novolog] 27 unit SQ TID 03/06/16 [History Confirmed 11/12/17 Last Taken 03/07/16] Insulin Glargine, Human [Lantus] 62 unit SQ HS 03/06/16 [History Confirmed 11/13 Last Taken 03/06/16] Losartan [Cozaar] 100 mg PO DAILY 03/06/16 [History Confirmed 11/12/17 Last Taken 03/07/16] Magnesium Oxide [Magnesium] 400 mg PO QHS 03/06/16 [History Confirmed 11/12/17 Last Taken 03/06/16] Multivit,Th Iron,Other Min [Complete Multivitamin] 1 each PO QDAY 03/06/16 [ History Confirmed 11/12/17 Last Taken 03/07/16] Rosuvastatin [Crestor] 5 mg PO 2-3XW 03/06/16 [History Confirmed 11/12/17 Last Taken 03/05/16] Terazosin [Hytrin] 4 mg PO HS 03/06/16 [History Confirmed 11/12/17 Last Taken ] Torsemide 5 mg PO QDAY 03/06/16 [History Confirmed 11/12/17 Last Taken 03/07/16] amLODIPine [Norvasc] 10 mg HS 03/06/16 [History Confirmed 11/12/17 Last Taken ] Medical - DS: Hosp Hospital course: Mr. Conrad Paul is a 72 year old M with a past medical history of insulin dependant TIIDM resulting in a right csyxd-dyn-[id number] leg amputation, hyperlipidemia, hypertension, COPD and sleep apnea that presents today with acute worsening of foot ulcer located near his left 5th distal metatarsal. . He had been attending weekly wound care appointments with Dr. Harrington for four months which he states has been helping up until his presentation today. He states that his wound does not cause him pain due to his sensory neuropathy. He denies sick contacts, fever, chest pain, N/V/D, abdominal pain, melena, bleeding or bruising. He admits to chills, night sweats, cough and sputum production. A lower limb MRI in the ER demonstrated osteomyelitis of the left 5th metatarsal and phalange with no gas or fluid. He was started on 2.25g of IV Zosyn and 1.5g IV Vancomycin in the ER and will be admitted for medical management along with wound care consultation Right foot osteomyelitis/ Cellulitis- Seen by Wound care and Infectious disease , patient cultures growing strep viridans as well as enterococcus, Plan for IV ampicillin 12gms via cadd pump as per ID reccs. Patient also started on Hyperbaric treatments as per Wound care The patient reports recent vascular evaluation by Dr Peng and no obstruction noted. Patient has a picc line in place The rest of the stay in the hospital was uneventful, no c hanges made to his [facility] home medications. Discharge diagnosis: Osteomyelitis, cellulitis - Time Spent with Patient Total time spent providing and/or coordinating discharge services: Greater than 30 minutes Medical - DS: Exam - Constitutional Vitals: Vital Signs Temp Pulse Pulse Resp BP Pulse Ox 11/16/17 11:52 97.9 F 70 16 150/65 94 11/16/17 07:04 98.2 F 61 16 155/75 92 11/16/17 03:52 98.6 F 62 16 129/65 94 11/15/17 23:51 97.3 F 64 18 160/78 94 11/15/17 21:39 82 16 11/15/17 20:00 97.6 F 66 18 167/77 94 11/15/17 16:00 97.8 F 20 149/88 96 Intake and Output 11/15/17 11/16/17 11/16/17 21:59 05:59 13:59 Intake Total 340 / 340 600 / 600 340 / 340 Balance 340 / 340 600 / 600 340 / 340 Intake: IV 100 / 100 100 / 100 100 / 100 Ampicillin 2 gm In Sodium 100 / 100 100 / 100 100 / 100 Chloride 0.9% 100 ml @ 100 mls/ hr IV Q6H [facility] Rx#:[id number] Oral 240 / 240 500 / 500 240 / 240 Other: Meal Breakfast Percent of Meal Consumed 100% Feeding Ability Independent # Voids 1 Weight 305 lb Additional comments: Constitutional; Afebrile, cooperative, alert, not in distress. Respiratory system: Air Entry equal on both sides, No crackles or wheezing, no rhonchi. CVS- Rate rhythm regular, S1,S2 heard, no gallop, no rub. RADIOLOGY TECHNICIAN- AOOx3, moving all extremities, no gross focal deficit noted. Medical - DS: Data Labs on day of discharge: Labs from last 24 hours 11/16/17 11/16/17 11/15/17 04:00 04:00 15:24 WBC 7.2 RBC 3.49 L Hgb 10.0 L Hct 30.0 L MCV 86.1 MCH 28.7 MCHC 33.3 RDW 15.5 H Plt Count 222 MPV 9.3 Gran % 58.8 Lymph % (Auto) 25.2 [place] % (Auto) 12.5 H Eos % (Auto) 2.9 Baso % (Auto) 0.6 Gran # 4.2 Lymph # (Auto) 1.8 [place] # (Auto) 0.9 Eos # (Auto) 0.2 Baso # (Auto) 0 Sodium 141 Potassium 4.3 Chloride 103 Carbon Dioxide 25 Anion Gap 13.0 BUN 45 H Creatinine 2.3 H GFR Calculation 28 Glucose 128 H Uric Acid 9.8 H Calcium 9.3 Phosphorus 3.6 Magnesium 2.6 H Total Bilirubin < 0.2 Direct Bilirubin < 0.2 GGT 27 AST 10 ALT 7 Alkaline Phosphatase 58 Lactate Dehydrogenase 169 Total Protein 6.9 Albumin 3.7 Globulin 3.2 Albumin/Globulin Ratio 1.2 Triglycerides 220 H Random Vancomycin 16.8 Vancomycin Dose Not Reportable Vanco Last Dose Time Not Reportable Preliminary micro results at discharge 11/12/17 13:04 Blood Culture - Preliminary Blood 11/12/17 13:51 Blood Culture - Preliminary Blood 11/12/17 13:20 Tissue Culture - Preliminary Foot - Left Streptococcus viridans Enterococcus species Medical - DS: A/P - Patient/Caregiver Discharge Instructions Diet: Consistent Carbohydrate Additional Instructions: Follow up in Wound care daily for dressing changes and Hyperbaric treatments Follow up with outpatient Pharmacy/ Infusion center for your Ampicillin infusion Patient needs daily Ampicillin infusion via CADD pump, 12gms over 24hrs as a continuos infusion. Patient needs to have CBC, BMP on a weekly basis, and ESR and CRP on every 2 week basis, lab results to be faxed to Dr Flores at the Infectious disease clinic. PICC line care per facility protocol D/C PICC line as per Dr Michelle Recommendation Follow up with ID clinic Dr Flores in 4 weeks Follow up with [facility] care clinic in [address] Maya[address] FOllow up with your PCP in 2 weeks for ongoing care of chr medical issues Besides the antibiotic, I have not made any changes to your chronic home medication list Go to the ER if worsening pain fever, chest pain shortness of breath or any other acute concerning symptom. - Follow up Plan Follow up with: Gallo Blevins DO [Primary Care Provider] - Disposition: Home, Self-Care Prognosis: Fair Rehab Potential: Fair I certify that the patient requires SNF services: No Overall status at discharge: patient is progressing back to baseline Medical - DS: Qual - VTE Deep Vein Thrombosis/Pulmonary Embolism Present on Admission: No
--- NOTE | 2017-11-16 21:20 | Event Note ---
Called by Microbiology Lab this evening, at around 5:30 pm that Mr. Paul's wound Cx are also growing MRSA (Vanc DARNELL 2, Dapto DARNELL 1), in addition to Strept viridans (speciated as Strep oralis) and Vancomycin resistant E fecalis ( Ampicillin sens, Daptomycin sens). This vital information was not available to me until Microbiology called. Since pt has already been discharged, will plan to change his antibiotics with help of pharmacy. With above organisms, it seems MRSA and ? Vanc resistant E fecalis seem to be the true pathogens. Thus will plan to stop IV Ampicillin, and instead use IV Daptomycin at 8 mg/kg [will use actual body weight as pt is obese; 138 x 8 = 1104 ~ 1100 mg] q24 hrs. Pt will need CK at baseline and then weekly, along with ESR & CRP every 2 weeks. Plan to follow him in ID clinic afetr 4 weeks.
== END 2017-11-16 16:45 | disposition home or self-care (01) | DRG 637 ==
LOC: ED 10:35 → MEDSUR 15:20
PROVIDERS: ADMIT Internal Medicine; ATTEND Internal Medicine

== ENCOUNTER 2023-03-19 17:16 | Observation (INO) ==
[2023-03-19 17:42] LABS: POC INR 1.1 (0.8-1.2); POC Pro Time 13.7 (11.9-14.5)
[2023-03-19 17:43] LABS: POC Calcium, Ionized 1.08 (1.16-1.32); POC Creatinine 2.8 (0.6-1.2); POC Potassium 4.7 (3.3-5.1)
[2023-03-19 18:11] LABS: Basophils # (Auto) 0.05 K/mcL (0.00-0.30); Basophils % (Auto) 0.8 % (0.0-2.0); Eosinophils # (Auto) 0.53 K/mcL (0.00-0.70); Eosinophils % (Auto) 8.3 % (0.0-7.0); Hematocrit 32.7 % (40.1-51.0); Hemoglobin 10.6 g/dL (13.7-17.5); Lymphocytes # (Auto) 1.36 K/mcL (1.50-4.80); Lymphocytes % (Auto) 21.2 % (15.5-49.0); Mean Cell Volume 90.8 fL (80.0-100.0); Mean Corpuscular HGB Conc 32.4 g/dL (31.0-36.0); Mean Platelet Volume 11.4 fL (8.8-12.5); Monocytes % (Auto) 15.6 % (1.0-12.0); Neutrophils % (Auto) 53.9 % (38.0-78.0); Platelet Count 181 K/mcL (140-440); Red Cell Distribution Width 13.2 % (11.5-14.5); WBC 6.4 K/mcL (4.5-11.0)
[2023-03-19 18:31] LABS: ALT/SGPT 13 U/L (<40); AST/SGOT 13 U/L (<40); Albumin 3.9 gm/dL (3.2-5.2); Alkaline Phosphatase 79 U/L (39-117); Bilirubin,Direct < 0.2 mg/dL (0-0.3); Bilirubin,Total 0.2 mg/dL (0.1-1.0); Globulin 2.8 gm/dL (2.2-3.7)
[2023-03-19] MEDS ORDERED: hydrALAZINE 20 MG/ML VIAL IV PRN (20:07)
[2023-03-19] MEDS ORDERED: DEXTROSE 50% 50 ML VIAL IV PRN (20:07)
[2023-03-19] MEDS ORDERED: ONDANSETRON 4 MG/2 ML VIAL IV PRN (20:07)
[2023-03-19] MEDS ORDERED: IPRATROPIUM/ALBUTEROL 3 ML AMPUL.NEB NEB PRN (20:07)
[2023-03-19] MEDS ORDERED: ASPIRIN 81 MG TAB.CHEW CHEWED ONE (20:07)
[2023-03-19] MEDS ORDERED: SENNOSIDES 1 TABLET PO PRN (20:07)
[2023-03-19] MEDS ORDERED: DEXTROSE 31 GM ORAL.SUSP PO PRN (20:07)
[2023-03-19] MEDS ORDERED: ACETAMINOPHEN 325 MG TABLET PO PRN (20:07)
[2023-03-19] MEDS ORDERED: LACTULOSE 20 GM/30 ML ORAL.SOL PO PRN (20:07)
[2023-03-19] MEDS: DOCUSATE SODIUM 100 MG CAPSULE PO SCH (22:10)
[2023-03-19] MEDS: INSULIN LISPRO 1 UNIT/0.01 ML UNIT SQ SCH (22:10)
[2023-03-19] MEDS: 0.9 % SODIUM CHLORIDE 10 ML SYRINGE IV SCH (22:11)
[2023-03-19] MEDS: HEPARIN 5,000 UNIT/ML VIAL SQ SCH (22:18)
[2023-03-19 22:59] LABS: Appearance,Urine CLEAR (Clear); Bilirubin,Urine Negative (Negative); Color,Urine STRAW; Culture Indicated,Urine No; Glucose,Urine (UA) Negative (Negative); Ketones,Urine Negative (Negative); Leukocyte Esterase,Urine Negative /uL (Negative); Mucus,Urine FEW /hpf; Nitrate,Urine Negative (Negative); Protein,Urine 100 mg/dL (Negative); Specific Gravity,Urine 1.008 (1.000-1.035); Urine Blood Negative (Negative); Urine Hyaline Cast 10 /lph (0-2); Urine RBC < 1 /hpf (0-3); Urine Squamous Epithelial Cell 0 /hpf (0-4); Urine WBC 0 /hpf (0-4); Urobilinogen,Urine Negative
[2023-03-20] MEDS: 0.9 % SODIUM CHLORIDE 10 ML SYRINGE IV SCH (05:14)
[2023-03-20 06:31] LABS: Basophils # (Auto) 0.05 K/mcL (0.00-0.30); Basophils % (Auto) 0.9 % (0.0-2.0); Eosinophils # (Auto) 0.61 K/mcL (0.00-0.70); Eosinophils % (Auto) 10.8 % (0.0-7.0); Hemoglobin 10.2 g/dL (13.7-17.5); Lymphocytes # (Auto) 1.46 K/mcL (1.50-4.80); Lymphocytes % (Auto) 25.9 % (15.5-49.0); Mean Cell Volume 93.5 fL (80.0-100.0); Mean Corpuscular HGB Conc 30.9 g/dL (31.0-36.0); Mean Platelet Volume 11.7 fL (8.8-12.5); Monocytes # (Auto) 0.74 K/mcL (0.10-0.90); Monocytes % (Auto) 13.1 % (1.0-12.0); Neutrophils % (Auto) 49.1 % (38.0-78.0); Platelet Count 171 K/mcL (140-440); RBC 3.53 M/mcL (4.63-6.08); Red Cell Distribution Width 13.2 % (11.5-14.5); WBC 5.6 K/mcL (4.5-11.0)
[2023-03-20 06:40] LABS: ALT/SGPT 13 U/L (<40); AST/SGOT 13 U/L (<40); Albumin 3.7 gm/dL (3.2-5.2); Albumin/Globulin Ratio 1.4 (1.0-2.3); Alkaline Phosphatase 77 U/L (39-117); Bilirubin,Total 0.2 mg/dL (0.1-1.0); Blood Urea Nitrogen 63 mg/dL (8-23); Calcium 8.7 mg/dL (8.6-10.4); Carbon Dioxide 25 mmol/L (22-30); Chloride 100 mmol/L (96-108); Globulin 2.7 gm/dL (2.2-3.7); Glomerular Filtration Rate 23; Glucose 127 mg/dL (70-105); HDL Cholesterol 32 mg/dL (>40); LDL Cholesterol,Calculated 144 mg/dL (<100); Non-HDL Cholesterol 175 mg/dL (<130); Triglycerides 157 mg/dL (<150)
[2023-03-20 06:53] LABS: Estimated Average Glucose(eAG) 169 mg/dL; Hemoglobin A1C 7.5 % Hgb (4.0-6.0)
[2023-03-20] MEDS: INSULIN LISPRO 1 UNIT/0.01 ML UNIT SQ SCH ×2 (07:17→11:33)
[2023-03-20] MEDS: HEPARIN 5,000 UNIT/ML VIAL SQ SCH (08:06)
[2023-03-20] MEDS: DOCUSATE SODIUM 100 MG CAPSULE PO SCH (08:07)
[2023-03-20] MEDS ORDERED: ASPIRIN 81 MG TAB.CHEW CHEWED SCH (09:00)
[2023-03-20] MEDS ORDERED: ALBUTEROL SULFATE 60 PUFF INHALER INH PRN (09:52)
[2023-03-20] MEDS ORDERED: LIDOCAINE 4% TOP PATCH TOPICAL PRN (09:56)
[2023-03-20] MEDS ORDERED: TERAZOSIN 1 MG CAPSULE PO SCH (21:00)
[2023-03-20] MEDS ORDERED: INSULIN GLARGINE, HUMAN 1 UNIT/0.01 ML SQ SCH (21:00)
[2023-03-20] MEDS ORDERED: MAGNESIUM OXIDE 400 MG TABLET PO SCH (21:00)
[2023-03-21] MEDS ORDERED: CALCITRIOL 0.25 MCG CAPSULE PO SCH (09:00)
[2023-03-21] MEDS ORDERED: VITAMIN D3 125 MCG TABLET PO SCH (09:00)
[2023-03-21] MEDS ORDERED: CLOPIDOGREL 75 MG TABLET PO SCH (09:00)
[2023-03-21] MEDS ORDERED: FISH OIL 1,000 MG CAPSULE PO SCH (09:00)
[2023-03-21] MEDS ORDERED: MULTIVIT,THER IRON,CA,FA & MIN 1 TABLET PO SCH (09:00)
[2023-03-21] MEDS ORDERED: ROSUVASTATIN 10 MG TABLET PO SCH (09:00)
== END 2023-03-20 13:17 | disposition home or self-care (01) ==
LOC: ICU 17:16 → ED 17:16 → ICU 20:06
PROVIDERS: ADMIT Internal Medicine; ATTEND Internal Medicine